=== PATIENT | female | born 1995 | race Caucasian/White ===

== ENCOUNTER 2020-04-14 19:09 | Emergency (ER) | payer BC, SELFPAY ==
--- NOTE | 2020-04-14 | DI.RAD.S_ITS ---
PROCEDURE: XR HAND RT MIN 3V INDICATIONS: RIGHT HAND PAIN TECHNIQUE: 3 views of the hand(s) acquired. COMPARISON: None. FINDINGS: Bones: No fractures or dislocations. Carpal bones are normally aligned. No suspicious bony lesions. Soft tissues: No suspicious soft tissue calcifications. IMPRESSION: No acute fracture. No osseous lesion. If symptoms and/or clinical suspicion for pathology persist, further assessment with repeat, or advanced imaging (e.g., CT, MRI, or bone scan) may be helpful for further assessment. Dictated by: Gina Arreola M.D. on 04/14/2020 at 19:35 Approved by: Gina Arreola M.D. on 04/14/2020 at 19:35
[2020-04-14 19:12] VITALS: TEMP 36.5; BMI 25.0
--- NOTE | 2020-04-14 19:14 | DI.RAD.S_ITS ---
PROCEDURE: XR WRIST RT MIN 3V INDICATIONS: wrist injury TECHNIQUE: 3 views of the wrist were acquired. COMPARISON: None. FINDINGS: Bones: No fractures or dislocations. No suspicious bony lesions. Scaphoid view: Not requested Soft tissues: No suspicious soft tissue calcifications. IMPRESSION: No acute fracture. No osseous lesion. If symptoms and/or clinical suspicion for pathology persist, further assessment with repeat, or advanced imaging (e.g., CT, MRI, or bone scan) may be helpful for further assessment. Dictated by: Gina Arreola M.D. on 04/14/2020 at 19:31 Approved by: Gina Arreola M.D. on 04/14/2020 at 19:31
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
[2020-04-14 22:58] VITALS: BP 114/62; PULSE 77; RESP 14; O2SAT 97
== END 2020-04-14 23:06 | disposition home or self-care (01) ==
PROVIDERS: Emergency Provider Emergency Medicine
DX: S63.91XA Sprain of unspecified part of right wrist and hand, initial encounter (principal); S66.911A Strain of unspecified muscle, fascia and tendon at wrist and hand level, right hand, initial encounter; Y93.41 Activity, dancing
CPT/HCPCS: 29125; 73110; 73130; 99283; 99284

== ENCOUNTER 2020-06-13 18:16 | Emergency (ER) | payer BC, SELFPAY ==
[2020-06-13 18:32] VITALS: BP 122/77; PULSE 70; RESP 22; TEMP 36.7; O2SAT 99
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
[2020-06-13] MEDS: IBUPROFEN 400 MG TABLET PO (19:01)
[2020-06-13] MEDS: BACITRACIN OINT 0.9 GM PCKT 1 APPLIC TOP (19:01)
[2020-06-13] MEDS: LIDO 1%/SOD BICARB 8.4% (10ML) 10 ML SYRINGE INJ (19:01)
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
[2020-06-13 19:56] VITALS: BP 116/76; PULSE 62; RESP 15; O2SAT 99
== END 2020-06-13 19:57 | disposition home or self-care (01) ==
PROVIDERS: Emergency Provider Nurse Practitioner Family
DX: S81.812A Laceration without foreign body, left lower leg, initial encounter (principal); W26.8XXA Contact with other sharp object(s), not elsewhere classified, initial encounter
CPT/HCPCS: 12002; 73590; 99283; 99284

== ENCOUNTER → 2021-02-27 18:39 | Outpatient (CLI) | payer OTHER, MEDICAID, SELFPAY ==
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
== END ==
PROVIDERS: PCP Nurse Practitioner Family; Referring Provider Orthopaedic Surgery Foot and Ankle Surgery; Visit Provider Orthopaedic Surgery Foot and Ankle Surgery
DX: M25.571 Pain in right ankle and joints of right foot (principal)
CPT/HCPCS: 73718

== ENCOUNTER 2021-03-20 23:02 | Emergency (ER) | payer OTHER, MEDICAID, SELFPAY ==
--- NOTE | 2021-03-20 23:11 | ED_ITS ---
HPI - Extremity Problem General Chief complaint: Extremity Problem,Nontraumatic Stated complaint: severe nerve pain Time Seen by Provider: 03/20/21 23:03 Source: patient and family Mode of arrival: Wheelchair Limitations: no limitations History of Present Illness HPI Narrative: 25-year-old female nonsmoker with recent history of overuse injury from running presents with a friend in the chief complaint of severe bu rning, sharp and stabbing pain from her right foot upper leg and now into her back. She denies any new injuries or falls. She denies any numbness, tingling or weakness. She denies any footdrop. She denies any trouble controlling bowel or bladder. She denies fever or chills and does not have a history of IV drug abuse. She denies any use of blood thinners. She had an EMG at the orthopedic office on and her symptoms have been terrible ever since. She had been on gabapentin 300 mg 3 times a day but becomes too sleepy during the day and has decreased to only 100 mg in the morning and 300 at night. MD Complaint: extremity pain Onset (ago): day(s) Pain Consistency: constant Location: right Severity scale (1-10): 9 Quality: burning, stabbing and sharp Radiation: proximal Relieving factors: rest Exacerbating factors: range of motion, weight bearing and walking Associated symptoms: denies other symptoms Related Data Previous Rx's Medication Instructions Recorded gabapentin 200 mg PO TID #30 cap 03/21/21 hydrocodone-acetaminophen 1 tab PO Q4-6H PRN #10 tab 03/21/21 ketorolac 10 mg PO Q6H PRN #14 tab 03/21/21 prednisone See Rx Instructions .ROUTE 03/21/21 .COMPLEX #30 tab Allergies Allergy/AdvReac Type Severity Reaction Status Date / Time No Known Drug Allergies Allergy Verified 04/14/20 19:12 Review of Systems Constitutional Constitutional: Denies chills, Denies fatigue, Denies fever(s), Denies frequent falls, Denies lethargy and Denies weakness Eyes Eyes: Denies change in vision, Denies eye discharge, Denies irritation and Denies loss of vision ENT Ears, Nose, Mouth, and Throat: Denies change in voice, Denies dizziness, Denies neck pain, Denies sore throat and Denies throat swelling Cardiovascular Cardiovascular: Denies chest pain, Denies irregular heart rhythm, Denies lightheadedness, Denies palpitations, Denies dyspnea, Denies dyspnea on exertion and Denies orthopnea Respiratory Respiratory: Denies cough, Denies dyspnea, Denies dyspnea on exertion and Denies wheezing Gastrointestinal Gastrointestinal: Denies abdominal pain, Denies change in bowel habits, Denies diarrhea, Denies nausea and Denies vomiting Musculoskeletal Musculoskeletal: Denies neck pain and Denies numbness Integumentary/Breasts Skin/Breast: Denies pruritus, Denies erythema, Denies rash and Denies wounds Neurologic Neurologic: Denies behavioral changes, Denies confusion, Denies dizziness, Denies frequent falls, Denies loss of vision, Denies numbness and Denies weakness Psychiatric Psychiatric: Denies anxiety, Denies behavioral changes, Denies confusion, Denies depression, Denies homicidal ideation and Denies suicidal ideation Endocrine Endocrine: Denies fatigue, Denies flushing and Denies palpitations Hematologic/Lymphatic Hematologic/Lymphatic: Denies easy bruising Allergic/Immunologic Allergic/Immunologic: Denies urticaria, Denies throat swelling and Denies wheezing Patient History Surgical History (Updated 06/13/20 @ 21:46 by BLANCA Zepeda) History of ankle surgery Social History (Updated 06/13/20 @ 21:46 by BLANCA Zepeda) Smoking Status: Never smoker substance use type: does not use Smoking Status: Never smoker alcohol intake frequency: holidays/special occasions only Substance Use Type: does not use Exam Narrative Exam Narrative: GEN: AOx3 and in obvious pain, tearful, rubbing her lower leg EYES: Pupils are equal, round, and reactive to light and accommodation. Extraoccular muscles are intact bilaterally. There is no subconjunctival hemorrhage or exudate. CHEST: Lungs are clear to auscultation bilaterally and free of wheezes, rales, or rhonchi. Heart rate is regular rhythm, there are no murmurs, clicks, rubs, or gallops. There is no chest wall tenderness. ABD: Abdomen is soft and nontender. There is no guarding or rebound. Bowel sounds are normal in all 4 quadrants. There is no mass or organomegaly. BACK: Back nontender and free of any obvious external abnormalities. Patient exam notes decreased range of motion and muscle spasm, but no CVA tenderness, or vertebral point tenderness. There are no symptoms of cauda equina such as saddle anesthesia, and decreased reflexes, decreased sensation or strength. EXT: Initially patient has significant pain with even minimal touch to her lower extremity from the knee down. The boot is removed and patient's foot is nontender, has good color cap refill less than 2 seconds and sensation intact. Compartments are soft. No erythema or discoloration. Patellar reflexes intact. SKIN: Warm, pink, and dry. No erythema or rash Initial Vital Signs Initial Vital Signs: Vital Signs Temperature 98.7 F 03/20/21 23:15 Pulse Rate 98 H 03/20/21 23:15 Respiratory Rate 20 03/20/21 23:15 Blood Pressure 139/86 03/20/21 23:15 Pulse Oximetry 99 03/20/21 23:15 Course Orders Ordered: Discontinued Medications Hydrocodone Bitart/Acetaminophen (Hydrocodone/Acet 5/325 Prepack) 1 bottle MISC SEEINSTR ONE Stop: 03/20/21 23:23 Last Admin: 03/20/21 23:33 Dose: 1 bottle Documented by: ALMA Ketorolac Tromethamine (Ketorolac 10 Mg Tablet) 10 mg PO NOW ONE Stop: 03/20/21 23:23 Last Admin: 03/20/21 23:34 Dose: 10 mg Documented by: ALMA Prednisone (Prednisone 20 Mg Tablet) 40 mg PO NOW ONE Stop: 03/20/21 23:17 Last Admin: 03/20/21 23:35 Dose: 40 mg Documented by: ALMA Consultations Consultation #1: Discussed with on-call orthopedics was able to review Dr. Vargas is no. Recommendations are to send home on a prednisone taper, encourage a higher dose of gabapentin and follow up in the morning Vital Signs Vital signs: Vital Signs - 8 hr 03/20/21 23:15 Temperature 98.7 F Pulse Rate 98 H Respiratory Rate 20 Blood Pressure 139/86 Pulse Oximetry 99 MDM - Extremity (Nontraumatic) MDM Narrative Medical decision making narrative: Multiple etiologies for patient's symptoms considered including: [Compartment syndrome versus lumbar radiculopathy versus peroneal nerve compression versus other] Patient's symptoms improved over duration of stay with above-stated therapies. Findings and discharge diagnosis discussed with patient/family followed by verbalization of understanding Return precautions discussed with patient/family whom verbalize understanding. Discharge Plan Departure Patient Disposition: Home Clinical Impression: Acute pain of right lower extremity Instructions: DI for Leg Pain Activity Restrictions/Additional Instructions: *You have been diagnosed with [severe right leg pain, presumably from nerve compression.] *What to do: *Take medications as directed * I have discussed your case with the on-call orthopedist rainer and he wants you to call Dr. Hester's office in the morning *Return to ER if you should have any new, worsening or concerning symptoms, such as [weakness, fever greater than 101 F, shaking chills, loss of control of bowel or bladder or other bothersome symptoms] Prescriptions: New prednisone 10 mg tablet See Rx Instructions .ROUTE .COMPLEX Qty: 30 RF: 0 ketorolac 10 mg tablet 10 mg PO Q6H PRN (Reason: pain) Qty: 14 RF: 0 hydrocodone-acetaminophen 5-325 mg tablet 1 tab PO Q4-6H PRN (Reason: pain) Qty: 10 RF: 0 gabapentin 100 mg capsule 200 mg PO TID Qty: 30 RF: 0 Referrals: Genesis Bryant ARNP [Primary Care Provider] - Stand Alone Forms: Work Release Note
[2021-03-20 23:15] VITALS: BP 139/86; PULSE 98; RESP 20; TEMP 37.1; O2SAT 99; BMI 23.3
[2021-03-20] MEDS: HYDROCODONE/ACET 5/325 PREPACK 1 BOTTLE MISC (23:33)
[2021-03-20] MEDS: KETOROLAC 10 MG TABLET PO (23:34)
[2021-03-20] MEDS: predniSONE 20 MG TABLET 40 MG PO (23:35)
[2021-03-21 00:46] VITALS: BP 118/70; PULSE 72; RESP 16; O2SAT 100
== END 2021-03-21 00:49 | disposition home or self-care (01) ==
PROVIDERS: Emergency Provider Emergency Medicine; PCP Nurse Practitioner Family
DX: M79.604 Pain in right leg (principal)
CPT/HCPCS: 99283

== ENCOUNTER → 2021-05-03 08:20 | Outpatient (CLI) | payer OTHER, MEDICAID, SELFPAY ==
[2021-05-03 10:55] LABS: COVID19 -Nasal RAPID Negative (Negative)
== END ==
PROVIDERS: PCP Nurse Practitioner Family; Visit Provider Nurse Practitioner Family
DX: Z20.822 Contact with and (suspected) exposure to COVID-19 (principal)
CPT/HCPCS: 87635

== ENCOUNTER 2021-05-05 06:24 | Day surgery (SDC) | payer OTHER, MEDICAID, SELFPAY ==
[2021-05-02 08:22] VITALS: BMI 21.6
[2021-05-05] VITALS (9 sets, daily range): BP systolic 94–118; BP diastolic 58–71; PULSE 70–94; RESP 10–18; TEMP 36.6–37; O2SAT 96–100; BMI 21.6
[2021-05-05] MEDS: LACTATED RINGERS 1,000 ML 42 ML IV (07:24)
--- NOTE | 2021-05-05 07:28 | PM.PREOP ---
Pre-operative Note COVID-19 COVID-19 status: Negative Result date/Date tested (Pos, Neg/Pending): 05/03/21 Interval Note History & Physical reviewed/Exam performed by Physician: Yes Changes to H&P: No
--- NOTE | 2021-05-05 07:33 | SUR.OPER ---
Lateral on padded OR bed with cordero bag, head on pillow, gel axillary roll in place, bottom leg bent with gel pad under knee to foot, upper leg straight and supported with pillows. Upper arm supported by pillows and secured over bottom arm to padded arm board. Safety belt at hip, tape over blanket lower legs.
[2021-05-05] MEDS: CEFAZOLIN 1 GM VIAL 2 GM IV (08:05)
[2021-05-05] MEDS: BUPIVACAINE 0.25% (PF) VIAL 30 ML INJ (08:19)
[2021-05-05] MEDS: EPINEPHrine 1 MG/ML IV (08:20)
[2021-05-05] MEDS: ACETAMINOPHEN IV 1,000 MG/100 ML VIAL 400 MG IV (08:42)
[2021-05-05] MEDS: HYDROMORPHONE 2 MG INJ IV (10:47)
[2021-05-05] MEDS: OXYCODONE IR 5 MG TABLET PO (10:49)
--- NOTE | 2021-05-05 11:20 | P.OP_ITS ---
Operative Date/Time/Diagnoses Date of procedure: 05/05/21 Time of procedure: 08:20 Pre-op diagnosis: 1. 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 Neuropathy right sural nerve Post-op diagnosis: same Procedure & Clinicians Procedure: 1. Fasciotomy, decompressive anterior compartment right lower leg CPT code 74022 2. Fasciotomy decompressive lateral compartment right lower leg CPT code 09815 3. Decompression superficial peroneal nerve right CPT code 38150 4. Decompression sore all nerve right CPT code 72578-14 Same procedure as scheduled: Yes Indications: Patient is a 26-year-old female with a long history of vague but persistent right lower extremity pain. This 1st happened when she was training for a half marathon and then she ended up spending 8 months and out of a walking boot due to pain and numbness over the last 7 years she has been in and out of a boot and has been unable to continue running regularly due to persistent pain S. This usually starts after about 10 or 15 minutes of running she was initially managed out of state with therapy and gabapentin for nerve injury. She is currently unable to run due to recurrences of pain also having more pain at rest numbness and hypersensitivity. She had EMG that noted some superficial peroneal sensory amplitude slower than the contralateral no evidence of lumbar sacral radiculopathy or polyneuropathy or common peroneal neuropathy she had an MRI of the right lower extremity that showed some signal change within the peroneus longus muscle proximally but no masses. She has exhausted conservative treatment remain symptomatic with the predictable worsening symptom minutes on the onset of exercise highly suspect for exertional compartment syndrome as well as a clinical toenails along both the superficial peroneal and the sural nerves. She has not gotten adequate relief at of nerve medication and continues to be unable to participate in activities. We have discussed lateral and anterior compartment releases and decompression of the superficial peroneal and sural nerves. No guarantees have been made. The risks and benefits of the procedure have been discussed with the patient even opportunity to ask questions. The risks of surgery include but are not limited to infection, malunion, nonunion, persistence of pain, damage to nerves and blood vessels, posttraumatic arthritis, DVT, PE, cardiopulmonary complications and . The patient expressed a thorough understanding of the risks and benefits of surgery and has elected to proceed. Consent was signed in the office. Surgeon: Unique Reyes Click Yes if Unassisted: Yes Anesthesia Type: General and Local (30 cc 0.25% Marcaine with epinephrine) Operative Notes Findings: Findings: superficial peroneal nerve was explored and there was compression significantly at the level of the transverse crural fascia with extremely thickened fascia and denting of the nerve. No transection or neuroma was noted. The nerve was completely decompressed along the course of the intermuscular septum. Additionally longitudinal and transverse fasciotomies of the anterior and lateral compartments were completed. Through a separate incision the sural nerve was explored no obvious neuroma however the distal sural nerve was tethered near the level of the lateral malleolus and compressed by a anterior crossing branch of the lesser saphenous vein. The nerve was decompressed distal and proximal to this. Closure Type: primary Specimen(s): none sent Estimated Blood Loss (mL): 5 Blood products transfused: none Tourniquet time (min): 55 Procedure in detail: In the preoperative holding area the appropriate limb and right leg surgery site was marked informed consent confirmed. Final questions were answered. Locati ons of the maximal Tinel's were marked this was approximately 10 cm proximal to the lateral malleolus a between the fibula and tibial crest in the distribution of the superficial peroneal nerve course and laterally just this proximal and posterior to the lateral malleolus along the sural nerve. Patient was brought back to the operating room by the anesthesia team positioned supine on the operative table. General anesthetic was administered and then the patient was positioned in the lateral decubitus position with the operative extremity up. All bony prominences were padded. Well-padded thigh tourniquet was placed. An axillary roll was placed. An SCD was on the contralateral lower extremity. The surgical leg was then prepped and draped in the standard sterile fashion. Formal time-out procedure was completed from the patient's side and site of surgery administration of appropriate preoperative antibiotics. All were in agreement. The Esmarch bandage was utilized for exsanguination the tourniquet elevated on the thigh to 250 mmHg and stayed there for 55 minutes. Superficial peroneal nerve decompression: The anterior lateral incision was marked out on the skin over the anterior and lateral compartments. The incision was marked at intervals of 10 15 and 20 cm proximal to the lateral malleolus at levels of 3.5 cm 4.0 cm and 4.5 cm lateral to the tibial crest corresponding to these levels. A separate more proximal incision was marked out in line with the compartment release incision more distally. The skin was incised sharply. Dissecting scissors were then used to expose the fascia. Extreme care and loupe magnification was used distally to identify the superficial peroneal nerve branch as it x-rayed the of fashion became subcutaneous this was approximately 10-12 cm proximal to the lateral malleolus. There was an abundance of scar tissue in this area. The nerve was dissected from proximal to distal. The robust transverse crural fascia was divided there was some tenting noted in the superficial peroneal nerve at this level but no transection or neuroma. There was a completely freed distally and then released completely proximally through the intramuscular septum. The superficial peroneal nerve was traced to where it dives deep into the muscle proximally. Lateral and anterior compartment fasciotomies: Next care was used to carefully divide longitudinally the anterior and lateral compartments with fasciotomies on either side of the septum. 1st in the longitudinal direction and then transverse fasciotomies. Additional small sections of the fascia were excised providing an excellent release. Muscle was pink and viable and contractile. The proximal counter incision was then made just anterior and distal to the fibular head this was taken down to the fascia fascia was carefully opened and then released of completely along the anterior and lateral compartments in continuity with the distal incision under the skin bridge. Retractors were used for complete visualization and nerve protection during part of the procedure. Sural nerve decompression: A separate incision was made along the course of the sural nerve starting at the level of the lateral malleolus posteriorly and for approximately 10 cm proximal and the posterior. This was incised through the skin again dissecting scissors were used to expose the soft tissues surrounding the sural nerve this was found proximally with the lesser fat saphenous vein and then traced distally towards the ankle. Sural nerve was found just anterior lateral to the Achilles and traced along the lesser saphenous vein. The nerve was released proximally and distally. Distal at the level just above the lateral malleolus was noted to be very prominent branch of the lesser saphenous vein which was directly crossing the sural nerve at this location. No obvious neuroma was demonstrated of but this is a suspect a site of compression as the lesser saphenous quite robust/varicose. The small crossing branch was ligated decompressing the sural nerve. At this point the compartments and nerves were completely decompressed the tourniquet was released and hemostasis was achieved. Once this was completed the wounds were thoroughly irrigated and then closed with 4-0 Monocryl suture and Dermabond. 30 cc of 0.25% Marcaine with epinephrine was used for local anesthetic. Sterile padded dressing and posterior splint was placed. Patient was woken from anesthesia and taken to the recovery room in good condition. No immediate complications were noted. Complications: none Post-operative Condition: stable Disposition: PACU Plan for aftercare: nonweightbearing or toe-touch down for balance for the 1st 2 weeks to help with healing advocated elevation for swelling. Will follow up in 2 weeks for weight-bearing and physical therapy. Will take 81 mg of aspirin b.i.d. while toe-touch weight-bearing.
--- NOTE | 2021-05-05 11:35 | SUR.PHASEII ---
Report to ALEX Owens. R leg elevated, ice behind knee. Mom called and condition updated. Can I just sleep? Call neri in reach. Pt allowed to rest.
--- NOTE | 2021-05-05 12:39 | SUR.PHASEII ---
Oxycodone was previously given per anesthesia, pt requested to take 1/2 tab additional med.
[2021-05-05] MEDS: OXYCODONE IR 5 MG TABLET 2.5 MG PO (12:41)
== END 2021-05-05 12:58 | disposition home or self-care (01) ==
PROVIDERS: PCP Nurse Practitioner Family; Referring Provider Orthopaedic Surgery Foot and Ankle Surgery; Visit Provider Orthopaedic Surgery Foot and Ankle Surgery
PROC: (CPT 27685; principal; 2021-05-05 07:45)
DX: M79.A21 Nontraumatic compartment syndrome of right lower extremity (principal); G57.31 Lesion of lateral popliteal nerve, right lower limb; M76.31 Iliotibial band syndrome, right leg; G57.82 Other specified mononeuropathies of left lower limb; J45.909 Unspecified asthma, uncomplicated
CPT/HCPCS: 27600; 64708 ×2; 81025; J0131; J0171; J0690; J1100; J1170; J1885; J2250; J2405; J2704; J3010

== ENCOUNTER → 2021-07-13 08:42 | Outpatient (CLI) | payer OTHER, MEDICAID, SELFPAY ==
[2021-07-13 09:46] LABS: Add Manual Diff / Slide Review NO; Basophils Absolute Auto 0 /uL (0-100); Basophils Percent Auto 0.6 % (0-2); Eosinophils Absolute Auto 100 /uL (0-450); Eosinophils Percent Auto 1.2 % (2-4); Hematocrit 38.5 % (36-46); Hemoglobin 12.7 g/dL (12.0-16.0); Lymphocytes Absolute Auto 1400 /uL (1100-4500); Lymphocytes Percent Auto 29.4 % (25-40); Mean Corpuscular Hemoglobin 31.3 PG (26-34); Mean Corpuscular Volume 94.8 fL (80-100); Monocytes Absolute Auto 700 /uL (0-900); Monocytes Percent Auto 14.6 % (3-14); Neutrophils Absolute Auto 2700 /uL (1500-7000); Neutrophils Percent Auto 54.2 % (50-75); Platelet Count 215 X10^3/uL (150-400); Red Blood Cell Count 4.06 X10^6/uL (4.0-5.2); White Blood Cell Count 4.9 X10^3/uL (4.5-11.0)
[2021-07-13 09:58] LABS: UR Morphine/Opiate cutoff 300 Negative (Negative); Ur Creatinine Normal (Normal); Ur Specific Gravity Normal (Normal); Urine Amphetamines Negative (Negative); Urine Barbiturates Negative (Negative); Urine Benzodiazepines Negative (Negative); Urine Cocaine Negative (Negative); Urine MDMA Negative (Negative); Urine Methadone Negative (Negative); Urine Methamphetamines Negative (Negative); Urine Oxycodone Negative (Negative); Urine Phencyclidine Negative (Negative); Urine Tetrahydrocannabinol Negative (Negative); Urine Tricyclic Antidepressant Negative (Negative); Urine pH Normal (Normal)
[2021-07-13 10:04] LABS: Alanine Aminotransferase 22 IU/L (<35); Albumin 4.5 g/dL (3.5-5.0); Albumin Globulin Ratio 1.6 (1.0-2.8); Alkaline Phosphatase 49 U/L (38-126); Aspartate Aminotransferase 38 IU/L (14-36); BUN Creatinine Ratio 13.5 (6-22); Bilirubin Total 0.9 mg/dL (0.2-1.3); Blood Urea Nitrogen 7 mg/dL (7-17); Calcium 9.4 mg/dL (8.4-10.2); Carbon Dioxide 26 mmol/L (22-32); Chloride 105 mmol/L (98-107); Estimated Glomerular Filt Rate > 60.0 mL/min (>60); Globulin 2.8 g/dL (1.7-4.1); Glucose 97 mg/dL (70-100); HEMOLYSIS < 15 (0-50); Potassium 4.1 mmol/L (3.4-5.1); Sodium 137 mmol/L (137-145); Total Protein 7.3 g/dL (6.3-8.2)
== END ==
PROVIDERS: PCP Registered Nurse; Referring Provider Registered Nurse; Visit Provider Registered Nurse
DX: F41.8 Other specified anxiety disorders (principal); F90.9 Attention-deficit hyperactivity disorder, unspecified type
CPT/HCPCS: 36415; 80053; 80305; 85025

== ENCOUNTER → 2021-08-14 09:01 | Outpatient (CLI) | payer OTHER, MEDICAID, SELFPAY ==
[2021-08-14 10:45] LABS: TSH w/ Reflex to FT4 1.69 uIU/mL (0.47-4.68)
[2021-08-15 14:19] LABS: Varicella IgG Antibody 1823 index (Immune >165)
== END ==
PROVIDERS: PCP Registered Nurse; Referring Provider Registered Nurse; Visit Provider Registered Nurse
DX: B01.9 Varicella without complication (principal); Z83.49 Family history of other endocrine, nutritional and metabolic diseases
CPT/HCPCS: 36415; 84443; 86580; 86787

== ENCOUNTER → 2021-09-11 13:44 | Outpatient (CLI) | payer OTHER, MEDICAID, SELFPAY ==
[2021-09-12 04:31] LABS: Hepatitis B Surf AB Quant <3.1 mIU/mL (Immunity>9.9)
== END ==
PROVIDERS: PCP Registered Nurse; Referring Provider Registered Nurse; Visit Provider Registered Nurse
DX: Z01.84 Encounter for antibody response examination (principal)
CPT/HCPCS: 36415; 86580; 86706

== ENCOUNTER → 2021-12-20 15:31 | Outpatient (CLI) | payer OTHER, SELFPAY ==
[2021-12-20 16:58] LABS: Alanine Aminotransferase 18 IU/L (<35); Albumin 4.3 g/dL (3.5-5.0); Albumin Globulin Ratio 1.7 (1.0-2.8); Alkaline Phosphatase 51 U/L (38-126); Aspartate Aminotransferase 29 IU/L (14-36); BUN Creatinine Ratio 11.8 (6-22); Bilirubin Total 0.9 mg/dL (0.2-1.3); Blood Urea Nitrogen 6 mg/dL (7-17); Calcium 9.7 mg/dL (8.4-10.2); Carbon Dioxide 28 mmol/L (22-32); Chloride 105 mmol/L (98-107); Estimated Glomerular Filt Rate > 60.0 mL/min (>60); Globulin 2.6 g/dL (1.7-4.1); Glucose 95 mg/dL (70-100); HEMOLYSIS < 15 (0-50); Potassium 3.8 mmol/L (3.4-5.1); Sodium 137 mmol/L (137-145); Total Protein 6.9 g/dL (6.3-8.2)
== END ==
PROVIDERS: PCP Registered Nurse; Referring Provider Registered Nurse; Visit Provider Registered Nurse
DX: F41.8 Other specified anxiety disorders (principal); F90.9 Attention-deficit hyperactivity disorder, unspecified type
CPT/HCPCS: 36415; 80053

== ENCOUNTER → 2022-07-15 15:05 | Outpatient (CLI) | payer OTHER, SELFPAY | PROVIDERS: Visit Provider Nurse Practitioner Critical Care Medicine | DX: H57.89 Other specified disorders of eye and adnexa (principal) | CPT/HCPCS: 87070; 87077; 87205 ==

== ENCOUNTER → 2023-01-24 08:00 | Outpatient (CLI) | payer BC, SELFPAY ==
[2023-01-24 09:11] LABS: Influenza A - CEPHEID Flu A NEGATIVE (NEGATIVE); Influenza B - CEPHEID Flu B NEGATIVE (NEGATIVE); Respiratory Syncytial Virus Negative (Negative)
[2023-01-24 09:13] LABS: COVID-19 CEPHEID 4-PLEX PCR Negative (Negative)
== END ==
PROVIDERS: Visit Provider Registered Nurse
DX: J06.9 Acute upper respiratory infection, unspecified (principal)
CPT/HCPCS: 0241U

== ENCOUNTER → 2023-09-11 18:38 | Outpatient (CLI) | payer OTHER, MEDICAID, SELFPAY ==
--- NOTE | 2023-09-11 18:41 | DI.RAD.S_ITS ---
PROCEDURE: XR KNEE LT 3V INDICATIONS: Left knee strain TECHNIQUE: 3 views of the knee were acquired. COMPARISON: None. FINDINGS: Bones: No fractures or dislocations. No suspicious bony lesions. Soft tissues: No joint effusion. No suspicious soft tissue calcifications. IMPRESSION: Left knee without acute radiographic abnormalities. No significant degenerative changes seen. If there are persistent symptoms or clinical suspicion for pathology, then repeat radiographs or advanced imaging (CT or MRI) may be considered for further evaluation. Dictated by: Jayden Keyes M.D. on 09/12/2023 at 10:14 Approved by: Jayden Keyes M.D. on 09/12/2023 at 10:15
== END ==
PROVIDERS: Referring Provider Nurse Practitioner Family; Visit Provider Nurse Practitioner Family
DX: M25.562 Pain in left knee (principal)
CPT/HCPCS: 73562

== ENCOUNTER → 2023-10-27 13:55 | Outpatient (CLI) | payer OTHER, MEDICAID, SELFPAY ==
--- NOTE | 2023-10-27 13:56 | DI.RAD.S_ITS ---
PROCEDURE: XR CHEST 2V INDICATIONS: Cough. TECHNIQUE: 2 views of the chest were acquired. COMPARISON: None. FINDINGS: Surgical changes and devices: None. Lungs and pleura: Lungs are clear. No pleural effusions or pneumothorax. Mediastinum: Mediastinal contours are normal. Heart size is normal. Bones and chest wall: No suspicious bony abnormalities. Soft tissues appear unremarkable. IMPRESSION: No acute cardiopulmonary abnormality is seen. Dictated by: Domingo Whitehead M.D. on 10/27/2023 at 13:13 Approved by: Domingo Whitehead M.D. on 10/27/2023 at 13:15
== END ==
PROVIDERS: Family Provider Orthopaedic Surgery Foot and Ankle Surgery; PCP Orthopaedic Surgery Foot and Ankle Surgery; Referring Provider Registered Nurse; Visit Provider Registered Nurse
DX: R05.9 Cough, unspecified (principal)
CPT/HCPCS: 71046

== ENCOUNTER → 2023-11-20 08:37 | Outpatient (CLI) | payer OTHER, MEDICAID, SELFPAY ==
--- NOTE | 2023-11-20 08:39 | DI.US.S_ITS ---
PROCEDURE: US PELVIC COMPLETE INDICATIONS: BLEEDING POST SPONTANEOUS 10/18/23. TECHNIQUE: Real-time scanning was performed of the pelvic organs, with image documentation. Additional endovaginal scanning was necessary due to incomplete visualization of the adnexal and endometrial structures by transabdominal scanning. COMPARISON: None. FINDINGS: Uterus: Uterus is retroverted and normal in size at 6.7 x 5.7 x 3.9 cm. The myometrium is homogeneous. The endometrium measures 2.3 mm combined thickness. Hypervascular endometrium is present. No focal uterine mass. Cervical canal is thickened and hypervascular. Ovaries: The right ovary measures 5.2 x 3.0 x 2.5 cm, with a calculated ovarian volume of 26.5 cc. The left ovary measures 3.9 x 2.0 x 1.9 cm, with a calculated ovarian volume of 7.4 cc. The ovaries have a normal sonographic appearance. Less than 12 follicles can be seen in each ovary. No adnexal masses are seen. Other: Small to moderate amount of complex fluid adjacent to the uterus is present. IMPRESSION: 1. Hypervascular endometrium, possibly indicating retained products of conception. 2. Small to moderate amount of complex free fluid in the pelvis. We strive to produce accurate, complete, and clear reports of imaging services. To assist us in improving patient care, this report was composed using standard report templates and voice recognition software. Therefore, it may contain abnormal punctuation, insertions and/or omissions. Occasional wrong-word or sound-alike substitutions may occur. Though we review the report and make efforts to correct it, we do recommend that the report be read carefully in proper context to recognize any text inaccuracies. Dictated by: Gina Arreola M.D. on 11/20/2023 at 9:33 Approved by: Gina Arreola M.D. on 11/20/2023 at 9:35
[2023-11-20 10:41] LABS: Add Manual Diff / Slide Review NO; Basophils Absolute Auto 0 /uL (0-100); Basophils Percent Auto 0.4 % (0-2); Eosinophils Absolute Auto 200 /uL (0-450); Eosinophils Percent Auto 3.1 % (2-4); Hematocrit 36.4 % (36-46); Hemoglobin 12.2 g/dL (12.0-16.0); Lymphocytes Absolute Auto 1300 /uL (1100-4500); Lymphocytes Percent Auto 19.4 % (25-40); Mean Corpuscular HGB Conc 33.7 % (30-36); Mean Corpuscular Hemoglobin 30.7 PG (26-34); Mean Corpuscular Volume 91.1 fL (80-100); Monocytes Absolute Auto 700 /uL (0-900); Monocytes Percent Auto 10.9 % (3-14); Neutrophils Absolute Auto 4300 /uL (1500-7000); Neutrophils Percent Auto 66.2 % (50-75); Platelet Count 232 X10^3/uL (150-400); Red Blood Cell Count 3.99 X10^6/uL (4.0-5.2); Red Cell Distribution Width 13.3 % (11.6-14.8); White Blood Cell Count 6.6 X10^3/uL (4.5-11.0)
[2023-11-20 11:27] LABS: HCG Quantitative /Beta subunit < 2.4 mIU/mL
== END ==
PROVIDERS: Family Provider Orthopaedic Surgery Foot and Ankle Surgery; PCP Family Medicine; Referring Provider Obstetrics & Gynecology; Visit Provider Obstetrics & Gynecology
DX: O03.9 Complete or unspecified spontaneous abortion without complication (principal); N92.0 Excessive and frequent menstruation with regular cycle; N92.1 Excessive and frequent menstruation with irregular cycle; T38.5X5A Adverse effect of other estrogens and progestogens, initial encounter; N92.3 Ovulation bleeding
CPT/HCPCS: 36415; 76830; 76856; 84702; 85025

== ENCOUNTER 2024-01-07 13:45 | Outpatient (RCR) | payer OTHER, MEDICAID, SELFPAY ==
--- NOTE | 2023-10-29 19:28 | PT.OIE ---
Current Diagnoses Pain in left knee (10/29/23) Radiculopathy, lumbosacral region (10/29/23) Muscle weakness (generalized) (10/29/23) Segmental and somatic dysfunction of sacral region (10/29/23) Past Medical History (Last Reviewed 10/27/23 @ 13:53 by BLANCA Mckeon) Hormonal disorder Immunity status testing Nasolacrimal duct obstruction Varicella Past Surgical History (Last Reviewed 10/27/23 @ 13:53 by BLANCA Mckeon) History of ankle surgery Visit Care Team Role Provider Type Unique Reyes MD Attending Provider Physician Family Provider Primary Care Provider Referring Provider Specialty: Orthopedics Orthopedic Surgery Address: [address] [place] [address], [place], [address] Email: Physical Therapy Initial Evaluation PT-OP-A Visit Information Start: 10/25/23 19:23 Freq: Status: Active Protocol: Document 10/29/23 14:36 LRN (Rec: 10/29/23 19:20 LRN [id number]) Out-Patient Physical Therapy Visit Information Visit Information Visit Type Initial Evaluation Visit Start Time 14:36 Visit Stop Time 15:34 Total Visit Minutes 58 Visit Number 12/11 Evaluation Information Evaluation Date 10/29/23 Precautions Precautions Ankle reconstruction surgery at age 11. PT-OP-B Current Condition Start: 10/25/23 19:23 Freq: Status: Active Protocol: Document 10/29/23 14:36 LRN (Rec: 10/29/23 19:20 LRN [id number]) Current Condition History of Current Condition Onset Date 08/17/23 Current Complaints L posterior knee pain onset w/ standing & activity. Pain rated 1/10. History of Current Condition Pt reports being seen 2 days ago for asthma exacerbation and is on antibiotics. Ran a half marathon and at mile 5 had hamstrings tightening, did stretches then finished the run, then had pain behind the L knee with inflammation. She reports waking the next day with throbbing pain, like being on fire. Took 2 weeks off running, did research online, and did self help. She returned to running and that night had terrible pain again. States during her time off she did knee ex's and a lot of standing, squatting. She has been able to take time off for the last 5 wks to heal from asthma and has been taking it easy. She felt her symptoms were similar to the pain she has in the R LE that has been diagnosed with compartment syndrome, but states Dr. Reyes found no compartment swelling in the knee (mid Sep) and was therefore referred to PT. Resting has helped to reduce her pain. She reports using Lidocaine topical patch behind the L knee ~3 wks, but hasn't used it in the past week because she has been trying to recover from an asthma flare up. She just started back to work today since being off sick. 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 Prior Treatments and Tests Gabapentin for R LE compartment syndrome in the R LE (since 2020). X-rays of L knee: Normal. Jt pressure: normal. No arthritis. Developmental History Developmental History Has hx of chronic compartment syndrome in lateral posterior lower leg and was experiencing a lot of similar symptoms in the knee. Treatment Goals Patient/Caregiver Goals Pt goals: Get back to working 8 hrs/2 shifts per week without having to use the knee brace or Lidocaine patch w/o pain. HEP. Prior Functional Status Baseline Function- ADL's Independent Baseline Function- Mobility Independent Baseline Function- Recreation/Hobbies Running avg of 30 miles a week . (10-12 miles per long run on hills). 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 Functional Limitations- Mobility/Gait Stairs ambulation is normal. Tolerates full shift at work if wearing Lidocaine pain patch and brace. W/o Lidocaine patch and brace, would need to sit for job. Functional Limitations- Recreation/ No exercise. Hobbies Functional Limitations- Other Stairs with occasional twinge of pain Personal Factors Other Personal Factors That May Effect Currently being treated for Therapy/Recovery asthma and recently ear infection (10/27/23), ADHD, RLE Chronic compartment syndrome (since 2020), ankle reconstruction surgery at age 11, depression. PT-OP-C Subjective Start: 10/25/23 19:23 Freq: Status: Active Protocol: Document 10/29/23 14:36 LRN (Rec: 10/29/23 19:20 LRN [id number]) Patient Questionnaires Lower Extremity Functional Scale LEFS Score 51 LEFS Impairment 20 to 39% Impaired (Score 48- 62) OP-PT Pain Assessment Pain Assessment Grid Paper Pain Assessment Grid Completed Yes Location L knee Pain Location Details L posterior thigh, popliteal fossa, and upper lower leg. Description Aching,Burning Pain Aggravating Factors Activity Other Pain Alleviating Factors Gabapentin PT-OP-G Mobility & Gait Start: 10/25/23 19:23 Freq: Status: Active Protocol: Document 10/29/23 14:36 LRN (Rec: 10/29/23 19:20 LRN [id number]) Stair Climbing Evaluation Comments Stair Climbing Comments Pt reports normal gait on stairs w/o pain PT-OP-H Neuro Start: 10/25/23 19:23 Freq: Status: Active Protocol: Document 10/29/23 14:36 LRN (Rec: 10/29/23 19:20 LRN [id number]) Sensation Evaluation Gross Sensation Gross Sensation WNL PT-OP-J Posture/Palpation/Skin Start: 10/25/23 19:23 Freq: Status: Active Protocol: Document 10/29/23 14:36 LRN (Rec: 10/29/23 19:20 LRN [id number]) Posture Evaluation Position Standing L-Spine Posture Neutral Shoulder Posture (L) Elevated Pelvis Posture Neutral Weight Distribution Balanced Hip Posture (L) Externally Rotated Knee Posture (R) Genu Recurvatum Foot Arch (L) High Arch,(R) High Arch Palpation Assessment Location L knee Palpation Location L knee joint and adjacent regions Palpation Details No pain. Pt reported initially pain at L Biceps Femoris tendon at proximal fibular head. PT-OP-K Range of Motion Start: 10/25/23 19:23 Freq: Status: Active Protocol: Document 10/29/23 14:36 LRN (Rec: 10/29/23 19:20 LRN [id number]) Knee Goniometric Range of Motion Knee Right Knee ROM WFL Yes Patient Position Sit & Stand Comments R knee in standing demonstrates hyper extension present. Left Knee ROM WFL Yes Patient Position Sitting Ankle and Foot Goniometric Range of Motion Ankle and Foot Right Active Ankle/Foot ROM WFL Yes Left Active Ankle/Foot ROM WFL Yes PT-OP-L Special Tests Start: 10/25/23 19:23 Freq: Status: Active Protocol: Document 10/29/23 14:36 LRN (Rec: 10/29/23 19:20 LRN [id number]) Special Tests Lumbar Spine Special Tests Slump Test Results + left Knee Special Tests Posterior Sag Test Results Left negative Apley's Compression Test Results Left positive with ER of foot Comments Pain felt at posterior fibular head. Valgus- 25 Degrees Test Results Left negative Valgus- 0 Degrees Test Results Left negative Bounce Home Test Results Left negative Patellar Grind Test Test Results Left negative Omayra's Test Results Left negative Anterior Draw Test Results Left negative Forrest Test Test Results Left negative Neural Special Tests- Lower Body Sciatic Nerve Tension Test Results Left Positive PT-OP-M Strength Start: 10/25/23 19:23 Freq: Status: Active Protocol: Document 10/29/23 14:36 LRN (Rec: 10/29/23 19:20 LRN [id number]) Hip Strength Hip Manual Muscle Testing Right Comments Strength is 5/5 Left Flexion (L2) 4 Good Comments Strength is 5/5 except as indicated above Knee Strength Knee Manual Muscle Testing Right Flexion (S2) 5 Normal Extension (L3) 5 Normal Left Flexion (S2) 5 Normal Extension (L3) 5 Normal Ankle/Foot Strength Ankle and Foot Manual Muscle Testing Right Comments Normal strength 5/5. Left Comments Normal strength 5/5. PT-OP-Q Treatments Start: 10/25/23 19:23 Freq: Status: Active Protocol: Document 10/29/23 14:36 LRN (Rec: 10/29/23 19:20 LRN [id number]) Therapeutic Exercises Sitting Exercises Kick the Head off Sitting Exercise Name LE nerve glide: Kick the Head Off Side bilateral Reps/Minutes 10x Comments Pt holds L/S straight, mild limited in knee ext due to pain Self-Care/Home Management Treatment Education Patient Education Home Exercise Program Other Education Discussed results of evaluation, goals, and plan of care (POC). Pt agreeable to goals and POC. Activities Self-Care/Home Management Activities I/S pt in HEP: L LE nerve glide (Kick the head off) PT-OP-T Assessment and Plan Start: 10/25/23 19:23 Freq: Status: Active Protocol: Document 10/29/23 14:36 LRN (Rec: 10/29/23 19:20 LRN [id number]) Physical Therapy Assessment Rehab Potential Rehabilitation Potential Good Evaluation Complexity Number of Personal Factors/Comorbidities 3 or More Number of Body Systems Impaired 4 or More Clinical Presentation at Evaluation Evolving Impairments Impairments Activity Tolerance,Pain, Posture,ROM,Soft Tissue Mobility,Strength Other Impairments L midly innominate anteriorly rotated. + LLE sciatic neural tension. Goals Three Impairment L LE neural tension limiting LLE mobility (SLR) Short Term Goal (STG) Pt will demonstrate a negative L PSLR. STG Duration 4 wks-11/29/23 Fdc Goal (LTG) No pain with L LE sciatic neural gliding otherwise request further testing for possible lumbar involvement. LTG Duration 10 wks-01/07/24 Two Impairment Pelvic obliquity (L anteriorly rotated innominate), + LLE neural tension Impairment LTG: Stabilize Pelvis with pt able to tolerate reorganizing pantry, washing dishes, laundry before having to sit down to rest. Short Term Goal (STG) Pt will be educated in self correction of L innominate for rotational correction ( initially for a mild L innominate anterior rotation). STG Duration 3 wks-11/22/23 Production Support Analyst Goal (LTG) Pt will be able to tolerate working 8 hrs/2 shifts per week without having to use the knee brace or Lidocaine patch w/o pain. LTG Duration 10 wks-01/07/24 One Impairment Pt lacks appropriate self care HEP Short Term Goal (STG) Pt will be educated in log roll transfers, proper body mechanics for ADLs, proper sitting/standing posture. STG Duration 3 wks-11/22/23 Fdc Goal (LTG) Pt will be independent in an effective self care HEP for low back/hip mobility & strengthening ex's, and LE strengthening. LTG Duration 10 wks-01/07/24 Assessment Summary Assessment Pt is a 28 yo female who presents with symptoms of lumbar neural involvement, weakness of L hip flexion (L2) and a mildly anteriorly rotated L innominate. I was only able to reproduce her pain with LLE Slump Testing and Apley's Compression Test, indicating possible meniscus injury. She has full L knee ROM and strength and has no pain with palpation around the knee. She indicates initially she had pain posteriorly at the proximal fibular head, but today there was no pain. The pt will benefit from skilled physical therapy to improve her function and acheive the above stated goals. If the pt is not able to progress in 4-6 weeks it would be recommended further testing for possible menicus injury or lumbar disc injury. Physical Therapy Plan Frequency and Duration Frequency of Treatment 2x/Week Duration of treatment (weeks) 10 Plan of Care Start Date 10/29/23 Plan of Care End Date 01/07/24 Therapeutic Interventions Therapeutic Interventions Canalithic Repositioning,Home Exercise Program,Joint Mobilizations,Manual Therapy, Neuromuscular Re-education, Patient/Caregiver Education, Self-Care/Home Management,Soft Tissue Mobilization,Taping, Therapeutic Activities, Therapeutic Exercises Modalities Cold Pack/Ice Massage,Electric Stimulation,Hot Packs, Ultrasound Next Visit Focus/Plan Next Note Type Treatment Note Next Visit Plan Assess knee reflexes and gait; assess hip PROM & lumbar ROM/ Special Tests, Education: log roll transfers , body mechanics for ADLs, sitting/standing posture. Pain managgement and self correction of L innominate for rotational correction. Manual: JMT to correct mildly anteriorly rotated L innominate & tib/fib mobs, Sacral balancing, STM-low back . TFL. Ex: LE neural gliding, Core stabilization after innominate correction, hip/lumbar ROM ex 's as needed after assessment. Gait training for transition to running.
--- NOTE | 2023-11-25 08:23 | PT-OP ANOTE ---
Pt did not show for today's appt, upon chart review has cancelled 6 appts via text with no reasoning since eval on 10/29/23. SENIOR IT RECRUITER left voice message regarding wanting to assist progress in mobility and pain control with which was referred here for and reminded of policy of maintaining attendance 50% +. SENIOR IT RECRUITER asked to call back this week and speak with SENIOR IT RECRUITER and or leave a message if wish to continue with scheduled appts or if doing well and want to DC is ok to do so just need confirmation. Next appt 11/29 with SENIOR IT RECRUITER.
--- NOTE | 2023-12-02 09:27 | PT.OTN ---
Current Diagnoses Pain in left knee (12/02/23) Radiculopathy, lumbosacral region (12/02/23) Muscle weakness (generalized) (12/02/23) Segmental and somatic dysfunction of sacral region (12/02/23) Physical Therapy Treatment Note PT-OP-A Visit Information Start: 10/25/23 19:23 Freq: Status: Active Protocol: Document 12/02/23 08:19 LRN (Rec: 12/02/23 09:25 LRN [id number]) Out-Patient Physical Therapy Visit Information Visit Information Visit Type Treatment Note Visit Start Time 08:20 Visit Stop Time 09:05 Total Visit Minutes 45 Visit Number 01/11 Evaluation Information Evaluation Date 10/29/23 Precautions Precautions Ankle reconstruction surgery at age 11. Pt reported compartment syndrome surgery in R Lower leg 04/2021 (release and removal of scar tissue of anterior lower leg). PT-OP-B Current Condition Start: 10/25/23 19:23 Freq: Status: Active Protocol: Document 10/29/23 14:36 LRN (Rec: 10/29/23 19:20 LRN [id number]) Current Condition History of Current Condition Onset Date 08/17/23 Current Complaints L posterior knee pain onset w/ standing & activity. Pain rated 1/10. History of Current Condition Pt reports being seen 2 days ago for asthma exacerbation and is on antibiotics. Ran a half marathon and at mile 5 had hamstrings tightening, did stretches then finished the run, then had pain behind the L knee with inflammation. She reports waking the next day with throbbing pain, like being on fire. Took 2 weeks off running, did research online, and did self help. She returned to running and that night had terrible pain again. States during her time off she did knee ex's and a lot of standing, squatting. She has been able to take time off for the last 5 wks to heal from asthma and has been taking it easy. She felt her symptoms were similar to the pain she has in the R LE that has been diagnosed with compartment syndrome, but states Dr. Reyes found no compartment swelling in the knee (mid Sep) and was therefore referred to PT. Resting has helped to reduce her pain. She reports using Lidocaine topical patch behind the L knee ~3 wks, but hasn't used it in the past week because she has been trying to recover from an asthma flare up. She just started back to work today since being off sick. 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 Prior Treatments and Tests Gabapentin for R LE compartment syndrome in the R LE (since 2020). X-rays of L knee: Normal. Jt pressure: normal. No arthritis. Developmental History Developmental History Has hx of chronic compartment syndrome in lateral posterior lower leg and was experiencing a lot of similar symptoms in the knee. Treatment Goals Patient/Caregiver Goals Pt goals: Get back to working 8 hrs/2 shifts per week without having to use the knee brace or Lidocaine patch w/o pain. HEP. Prior Functional Status Baseline Function- ADL's Independent Baseline Function- Mobility Independent Baseline Function- Recreation/Hobbies Running avg of 30 miles a week . (10-12 miles per long run on hills). 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 Functional Limitations- Mobility/Gait Stairs ambulation is normal. Tolerates full shift at work if wearing Lidocaine pain patch and brace. W/o Lidocaine patch and brace, would need to sit for job. Functional Limitations- Recreation/ No exercise. Hobbies Functional Limitations- Other Stairs with occasional twinge of pain Personal Factors Other Personal Factors That May Effect Currently being treated for Therapy/Recovery asthma and recently ear infection (10/27/23), ADHD, RLE Chronic compartment syndrome (since 2020), ankle reconstruction surgery at age 11, depression. PT-OP-C Subjective Start: 10/25/23 19:23 Freq: Status: Active Protocol: Document 12/02/23 08:19 LRN (Rec: 12/02/23 09:25 LRN [id number]) OP-PT Subjective Patient Comments Patient Comments In hospital for RSV the day of last treatment. She had been told she was having an allergy flare up. She has been doing a lot of sleeping and had been on meds that prevents her from driving. Since not doing anything her knee is better. Will have to do PT only 1x/week until she is able to return to driving. Pt reports compartment syndrome surgery in R Lower leg 04/2021 (release and removal of scar tissue of anterior lower leg). PT-OP-G Mobility & Gait Start: 10/25/23 19:23 Freq: Status: Active Protocol: Document 12/02/23 08:19 LRN (Rec: 12/02/23 09:25 LRN [id number]) OP Gait Assessment Gait Gait Assistance Required: Independent Comments Gait Comments LLE Stance phase - decreased L hip sway and L foot AD. PT-OP-H Neuro Start: 10/25/23 19:23 Freq: Status: Active Protocol: Document 12/02/23 08:19 LRN (Rec: 12/02/23 09:25 LRN [id number]) Deep Tendon Reflex & Clonus Assessment Deep Tendon Reflex Right Achilles Deep Tendon Reflex 2+ Normal Left Achilles Deep Tendon Reflex 4+ Brisk Bilateral Patellar Deep Tendon Reflex 3+ Normal But Brisk PT-OP-J Posture/Palpation/Skin Start: 10/25/23 19:23 Freq: Status: Active Protocol: Document 10/29/23 14:36 LRN (Rec: 10/29/23 19:20 LRN [id number]) Posture Evaluation Position Standing L-Spine Posture Neutral Shoulder Posture (L) Elevated Pelvis Posture Neutral Weight Distribution Balanced Hip Posture (L) Externally Rotated Knee Posture (R) Genu Recurvatum Foot Arch (L) High Arch,(R) High Arch Palpation Assessment Location L knee Palpation Location L knee joint and adjacent regions Palpation Details No pain. Pt reported initially pain at L Biceps Femoris tendon at proximal fibular head. PT-OP-K Range of Motion Start: 10/25/23 19:23 Freq: Status: Active Protocol: Document 12/02/23 08:19 LRN (Rec: 12/02/23 09:27 LRN [id number]) Lumbar Spine Range of Motion Lumbar Spine Active Degrees Testing Position Standing Flexion 100 Extension 25 Rotation Left 45 Rotation Right 43 Lateral Flexion Left 27 Lateral Flexion Right 15 ROM Limitations Soft Tissue Tightness Comments Trunk AROM: Flexion is 100 deg?s with 70 deg?s hip flexion, Trunk extension is 25 deg?s with 20 deg?s hip extension. Hip Goniometric Range of Motion Hip Right Passive Testing Position Supine Internal Rotation 25 External Rotation 75 Left Passive Testing Position Supine Internal Rotation 30 External Rotation 65 PT-OP-L Special Tests Start: 10/25/23 19:23 Freq: Status: Active Protocol: Document 10/29/23 14:36 LRN (Rec: 10/29/23 19:20 LR [id number]) Special Tests Lumbar Spine Special Tests Slump Test Results + left Knee Special Tests Posterior Sag Test Results Left negative Apley's Compression Test Results Left positive with ER of foot Comments Pain felt at posterior fibular head. Valgus- 25 Degrees Test Results Left negative Valgus- 0 Degrees Test Results Left negative Bounce Home Test Results Left negative Patellar Grind Test Test Results Left negative Omayra's Test Results Left negative Anterior Draw Test Results Left negative Forrest Test Test Results Left negative Neural Special Tests- Lower Body Sciatic Nerve Tension Test Results Left Positive PT-OP-M Strength Start: 10/25/23 19:23 Freq: Status: Active Protocol: Document 10/29/23 14:36 LRN (Rec: 10/29/23 19:20 LR [id number]) Hip Strength Hip Manual Muscle Testing Right Comments Strength is 5/5 Left Flexion (L2) 4 Good Comments Strength is 5/5 except as indicated above Knee Strength Knee Manual Muscle Testing Right Flexion (S2) 5 Normal Extension (L3) 5 Normal Left Flexion (S2) 5 Normal Extension (L3) 5 Normal Ankle/Foot Strength Ankle and Foot Manual Muscle Testing Right Comments Normal strength 5/5. Left Comments Normal strength 5/5. PT-OP-Q Treatments Start: 10/25/23 19:23 Freq: Status: Active Protocol: Document 12/02/23 08:19 LRN (Rec: 12/02/23 09:25 LR [id number]) Therapeutic Exercises Supine Exercises Hip PROM ER/IR Supine Exercise Name Hip ER/IR passive stretch Side bilateral Reps/Minutes 2x each Comments ROM also taken. Cuing to relax hip for ROM/stretch Piriformis stretch Supine Exercise Name KTC w/ankle over knee & single leg knee to opp shldr Reps/Minutes 1' each Comments extra time to determine max curry stretch & for proper leg positioning. Sitting Exercises 90/90 stretch Sitting Exercise Name 90/90 stretch sitting on plinth Side bilateral Reps/Minutes 3' Comments Cuing to keep R ischial tub down during stretch to R hip. Hip AD stretch Sitting Exercise Name V-sit, cuing to fwd bend straight and not off to L side . Reps/Minutes 1' stretch Comments Extra time to correct mvmt pattern & to deter max curry stretch. Kick the head Sitting Exercise Name LLE neural tension glide: Kick the Head for L LE neural glide. Side bilateral Reps/Minutes 10x each Comments cuing to DF ankle max w/o pain Kick the Head off Sitting Exercise Name LLE nerve glide: Kick the Head Off for L LE neural glide Side bilateral Reps/Minutes 10x Comments cuing to DF ankle max w/o pain Standing Exercises Trunk AROM Standing Exercise Name Trunk AROM (flex, ext, michael SB, michael Rot) Comments phys & v cuing to keep knees straight & not rot trunk w/SB. ROM taken Trunk R SB stretch Standing Exercise Name Trunk R SB stretch against wall Side right Reps/Minutes 10 SH x 10 Comments Cued to keep trunk from R Rot. Pt not able, so placed against wall. Self-Care/Home Management Treatment Education Patient Education Home Exercise Program Activities Self-Care/Home Management Activities Issued & reviewed HEP: LE Neural glides slider (Kick the head off) & Tensioner (Kick the head); Trunk R SB stretch & Hip IR stretches (Piriformis - 2 types) and Lateral hip stretch. PT-OP-T Assessment and Plan Start: 10/25/23 19:23 Freq: Status: Active Protocol: Document 12/02/23 08:19 LRN (Rec: 12/02/23 09:25 LRN [id number]) Physical Therapy Assessment Goals Three Impairment L LE neural tension limiting LLE mobility (SLR) Short Term Goal (STG) Pt will demonstrate a negative L PSLR. STG Duration 4 wks-11/29/23 Snf Goal (LTG) No pain with L LE sciatic neural gliding otherwise request further testing for possible lumbar involvement. LTG Duration 10 wks-01/07/24 Two Impairment Pelvic obliquity (L anteriorly rotated innominate), + LLE neural tension Impairment LTG: Stabilize Pelvis with pt able to tolerate reorganizing pantry, washing dishes, laundry before having to sit down to rest. Short Term Goal (STG) Pt will be educated in self correction of L innominate for rotational correction ( initially for a mild L innominate anterior rotation). STG Duration 3 wks-11/22/23 Snf Goal (LTG) Pt will be able to tolerate working 8 hrs/2 shifts per week without having to use the knee brace or Lidocaine patch w/o pain. LTG Duration 10 wks-01/07/24 One Impairment Pt lacks appropriate self care HEP Short Term Goal (STG) Pt will be educated in log roll transfers, proper body mechanics for ADLs, proper sitting/standing posture. STG Duration 3 wks-11/22/23 Photovoltaic Installer Goal (LTG) Pt will be independent in an effective self care HEP for low back/hip mobility & strengthening ex's, and LE strengthening. LTG Duration 10 wks-01/07/24 Assessment Summary Assessment 28 yo female with initial symptoms of lumbar neural involvement, weakness of L hip flexion (L2) and a mildly anteriorly rotated L innominate. Since her RSV illness pt has rested and show improved L neural gliding with pain on neural glide with added max ankle DF for stretch, otherwise no knee pain. DTR's: Achilles brisk L, Normal R, but may be due to compartment syndrome surgery in R Lower leg 04/2021 (release and removal of scar tissue of anterior lower leg). Physical Therapy Plan Frequency and Duration Frequency of Treatment 2x/Week Duration of treatment (weeks) 10 Plan of Care Start Date 10/29/23 Plan of Care End Date 01/07/24 Next Visit Focus/Plan Next Note Type Treatment Note Next Visit Plan Assess hip Special Tests. ( Note: R LE 04/2021 compartment syndrome surgery) Education L/S protective: log roll transfers, body mechanics for ADLs, sitting/standing posture. Educ: Pain managgement and self correction of L innominate for rotational correction. Manual: JMT to correct mildly anteriorly rotated L innominate & tib/fib mobs, Sacral balancing, STM-low back . TFL. Ex: Core stabilization after innominate correction Gait training for transition to running.
--- NOTE | 2023-12-09 15:54 | PT.OTN ---
Current Diagnoses Pain in left knee (12/09/23) Radiculopathy, lumbosacral region (12/09/23) Muscle weakness (generalized) (12/09/23) Segmental and somatic dysfunction of sacral region (12/09/23) Physical Therapy Treatment Note PT-OP-A Visit Information Start: 10/25/23 19:23 Freq: Status: Active Protocol: Document 12/09/23 07:32 LRN (Rec: 12/09/23 08:20 LRN [id number]) Out-Patient Physical Therapy Visit Information Visit Information Visit Type Treatment Note Visit Start Time 07:32 Visit Stop Time 08:17 Total Visit Minutes 45 Visit Number 02/08 Evaluation Information Evaluation Date 10/29/23 Precautions Precautions Ankle reconstruction surgery at age 11. Pt reported compartment syndrome surgery in R Lower leg 04/2021 (release and removal of scar tissue of anterior lower leg). PT-OP-B Current Condition Start: 10/25/23 19:23 Freq: Status: Active Protocol: Document 10/29/23 14:36 LRN (Rec: 10/29/23 19:20 LRN [id number]) Current Condition History of Current Condition Onset Date 08/17/23 Current Complaints L posterior knee pain onset w/ standing & activity. Pain rated 1/10. History of Current Condition Pt reports being seen 2 days ago for asthma exacerbation and is on antibiotics. Ran a half marathon and at mile 5 had hamstrings tightening, did stretches then finished the run, then had pain behind the L knee with inflammation. She reports waking the next day with throbbing pain, like being on fire. Took 2 weeks off running, did research online, and did self help. She returned to running and that night had terrible pain again. States during her time off she did knee ex's and a lot of standing, squatting. She has been able to take time off for the last 5 wks to heal from asthma and has been taking it easy. She felt her symptoms were similar to the pain she has in the R LE that has been diagnosed with compartment syndrome, but states Dr. Reyes found no compartment swelling in the knee (mid Sep) and was therefore referred to PT. Resting has helped to reduce her pain. She reports using Lidocaine topical patch behind the L knee ~3 wks, but hasn't used it in the past week because she has been trying to recover from an asthma flare up. She just started back to work today since being off sick. 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 Prior Treatments and Tests Gabapentin for R LE compartment syndrome in the R LE (since 2020). X-rays of L knee: Normal. Jt pressure: normal. No arthritis. Developmental History Developmental History Has hx of chronic compartment syndrome in lateral posterior lower leg and was experiencing a lot of similar symptoms in the knee. Treatment Goals Patient/Caregiver Goals Pt goals: Get back to working 8 hrs/2 shifts per week without having to use the knee brace or Lidocaine patch w/o pain. HEP. Prior Functional Status Baseline Function- ADL's Independent Baseline Function- Mobility Independent Baseline Function- Recreation/Hobbies Running avg of 30 miles a week . (10-12 miles per long run on hills). 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 Functional Limitations- Mobility/Gait Stairs ambulation is normal. Tolerates full shift at work if wearing Lidocaine pain patch and brace. W/o Lidocaine patch and brace, would need to sit for job. Functional Limitations- Recreation/ No exercise. Hobbies Functional Limitations- Other Stairs with occasional twinge of pain Personal Factors Other Personal Factors That May Effect Currently being treated for Therapy/Recovery asthma and recently ear infection (10/27/23), ADHD, RLE Chronic compartment syndrome (since 2020), ankle reconstruction surgery at age 11, depression. PT-OP-C Subjective Start: 10/25/23 19:23 Freq: Status: Active Protocol: Document 12/09/23 07:32 LRN (Rec: 12/09/23 08:20 LRN [id number]) OP-PT Subjective Patient Comments Patient Comments L knee started hurting behind the knee 3 days later. Pain is occasional. Only thing changed is the exercises. Feels the pain walking, like an ache, lasting a minute ( walking dog, getting up walking to bathroom). Hasn't felt the pain with exercise. PT-OP-G Mobility & Gait Start: 10/25/23 19:23 Freq: Status: Active Protocol: Document 12/02/23 08:19 LRN (Rec: 12/02/23 09:25 LRN [id number]) OP Gait Assessment Gait Gait Assistance Required: Independent Comments Gait Comments LLE Stance phase - decreased L hip sway and L foot AD. PT-OP-H Neuro Start: 10/25/23 19:23 Freq: Status: Active Protocol: Document 12/02/23 08:19 LRN (Rec: 12/02/23 09:25 LRN [id number]) Deep Tendon Reflex & Clonus Assessment Deep Tendon Reflex Right Achilles Deep Tendon Reflex 2+ Normal Left Achilles Deep Tendon Reflex 4+ Brisk Bilateral Patellar Deep Tendon Reflex 3+ Normal But Brisk PT-OP-J Posture/Palpation/Skin Start: 10/25/23 19:23 Freq: Status: Active Protocol: Document 10/29/23 14:36 LRN (Rec: 10/29/23 19:20 LRN [id number]) Posture Evaluation Position Standing L-Spine Posture Neutral Shoulder Posture (L) Elevated Pelvis Posture Neutral Weight Distribution Balanced Hip Posture (L) Externally Rotated Knee Posture (R) Genu Recurvatum Foot Arch (L) High Arch,(R) High Arch Palpation Assessment Location L knee Palpation Location L knee joint and adjacent regions Palpation Details No pain. Pt reported initially pain at L Biceps Femoris tendon at proximal fibular head. PT-OP-K Range of Motion Start: 10/25/23 19:23 Freq: Status: Active Protocol: Document 12/02/23 08:19 LRN (Rec: 12/02/23 09:27 LRN [id number]) Lumbar Spine Range of Motion Lumbar Spine Active Degrees Testing Position Standing Flexion 100 Extension 25 Rotation Left 45 Rotation Right 43 Lateral Flexion Left 27 Lateral Flexion Right 15 ROM Limitations Soft Tissue Tightness Comments Trunk AROM: Flexion is 100 deg?s with 70 deg?s hip flexion, Trunk extension is 25 deg?s with 20 deg?s hip extension. Hip Goniometric Range of Motion Hip Right Passive Testing Position Supine Internal Rotation 25 External Rotation 75 Left Passive Testing Position Supine Internal Rotation 30 External Rotation 65 PT-OP-L Special Tests Start: 10/25/23 19:23 Freq: Status: Active Protocol: Document 10/29/23 14:36 LRN (Rec: 10/29/23 19:20 LRN [id number]) Special Tests Lumbar Spine Special Tests Slump Test Results + left Knee Special Tests Posterior Sag Test Results Left negative Apley's Compression Test Results Left positive with ER of foot Comments Pain felt at posterior fibular head. Valgus- 25 Degrees Test Results Left negative Valgus- 0 Degrees Test Results Left negative Bounce Home Test Results Left negative Patellar Grind Test Test Results Left negative Omayra's Test Results Left negative Anterior Draw Test Results Left negative Forrest Test Test Results Left negative Neural Special Tests- Lower Body Sciatic Nerve Tension Test Results Left Positive PT-OP-M Strength Start: 10/25/23 19:23 Freq: Status: Active Protocol: Document 10/29/23 14:36 LRN (Rec: 10/29/23 19:20 LRN [id number]) Hip Strength Hip Manual Muscle Testing Right Comments Strength is 5/5 Left Flexion (L2) 4 Good Comments Strength is 5/5 except as indicated above Knee Strength Knee Manual Muscle Testing Right Flexion (S2) 5 Normal Extension (L3) 5 Normal Left Flexion (S2) 5 Normal Extension (L3) 5 Normal Ankle/Foot Strength Ankle and Foot Manual Muscle Testing Right Comments Normal strength 5/5. Left Comments Normal strength 5/5. PT-OP-Q Treatments Start: 10/25/23 19:23 Freq: Status: Active Protocol: Document 12/09/23 07:32 LRN (Rec: 12/09/23 08:20 LRN [id number]) Therapeutic Exercises Supine Exercises LE neural stretch Supine Exercise Name Feet on wall with arching/ flattening of back. Reps/Minutes 5' TA/feet off wall Supine Exercise Name TA/feet off wall Reps/Minutes 4' Lateral Hip Stretch Supine Exercise Name Lateral Hip stretch Side bilateral Reps/Minutes 4' Hip PROM ER/IR Supine Exercise Name Hip ER/IR passive stretch Side bilateral Reps/Minutes 2x each Comments ROM also taken. Cuing to relax hip for ROM/stretch Piriformis stretch Supine Exercise Name KTC w/ankle over knee & single leg knee to opp shldr Reps/Minutes 1' each Comments extra time to determine max curry stretch & for proper leg positioning. Sitting Exercises 90/90 stretch Sitting Exercise Name 90/90 stretch sitting on plinth Side bilateral Reps/Minutes 3' Comments Cuing to keep R ischial tub down during stretch to R hip. Hip AD stretch Sitting Exercise Name 1 leg on plinth, cuing to fwd bend straight and not off to L side. Side bilateral Reps/Minutes 2' Comments Extra time to correct mvmt pattern & to deter max curry stretch. Standing Exercises Trunk R SB stretch Standing Exercise Name Trunk R SB stretch against wall Side right Reps/Minutes 10 SH x 10 Comments Cued to keep trunk from R Rot. Pt not able, so placed against wall. Self-Care/Home Management Treatment Education Patient Education Body Mechanics Other Education Discussed and educated pt in posturing with core stability while dog walking and proper posture sitting for prolonged periods to help eliminate the new pain behind the L knee. Discussed at pt request review of her ex workouts for safety . Discussed squats and variations/ lifts/lunges. Pt ok to do lifts if holding wgt close to body & lunges 10 at a time (SIJ innominates neutral). Discussed Posture, body mechanics & positional stresses on body in different positions. Activities Self-Care/Home Management Activities HEP: TA tightening: Feet off wall. Handouts issued for Proper posture in standing and sitting, ADL body mechanics & positional stresses on body in different positions. PT-OP-T Assessment and Plan Start: 10/25/23 19:23 Freq: Status: Active Protocol: Document 12/09/23 07:32 LRN (Rec: 12/09/23 08:20 LRN [id number]) Physical Therapy Assessment Goals Three Impairment L LE neural tension limiting LLE mobility (SLR) Short Term Goal (STG) Pt will demonstrate a negative L PSLR. STG Duration 4 wks-11/29/23 [facility] Goal (LTG) No pain with L LE sciatic neural gliding otherwise request further testing for possible lumbar involvement. LTG Duration 10 wks-01/07/24 Two Impairment Pelvic obliquity (L anteriorly rotated innominate), + LLE neural tension Impairment LTG: Stabilize Pelvis with pt able to tolerate reorganizing pantry, washing dishes, laundry before having to sit down to rest. Short Term Goal (STG) Pt will be educated in self correction of L innominate for rotational correction ( initially for a mild L innominate anterior rotation). 12/09/23: Pelvis in neutral. STG Duration 3 wks-11/22/23 [facility] Goal (LTG) Pt will be able to tolerate working 8 hrs/2 shifts per week without having to use the knee brace or Lidocaine patch w/o pain. LTG Duration 10 wks-01/07/24 One Impairment Pt lacks appropriate self care HEP Short Term Goal (STG) Pt will be educated in log roll transfers, proper body mechanics for ADLs, proper sitting/standing posture. 12/09/23: Educated pt and handouts issued. STG Duration 3 wks-11/22/23 (12/09/23: MET GOAL) [facility] Goal (LTG) Pt will be independent in an effective self care HEP for low back/hip mobility & strengthening ex's, and LE strengthening. 12/09/23: TA strengthening ( on wedge, feet off wall) LTG Duration 10 wks-01/07/24 progressing 12/09/23 Assessment Summary Assessment 28 yo female with initial symptoms of lumbar neural involvement, weakness of L hip flexion (L2) and a mildly anteriorly rotated L innominate. Today, SIJ in neutral bilaterally; therefore held hip Special Testing. Weak TA, pt not able to maintain TA tight with lifting feet off wall more than 2 secs. Good recall of HEP. Physical Therapy Plan Frequency and Duration Frequency of Treatment 2x/Week Duration of treatment (weeks) 10 Plan of Care Start Date 10/29/23 Plan of Care End Date 01/07/24 Next Visit Focus/Plan Next Note Type Treatment Note Next Visit Plan Assess hip Special Tests when pelvis is rotated or if more stable. (Note: Saray MADERA 04/2021 compartment syndrome surgery) Educ: Pain managgement and self correction of L innominate for rotational correction. Manual: If needed: JMT to correct mildly anteriorly rotated L innominate & tib/fib mobs, Sacral balancing, Manual: STM-low back. TFL. Ex: Core stabilization Gait training for transition to running.
--- NOTE | 2023-12-16 11:03 | PT.OTN ---
Current Diagnoses Pain in left knee (12/16/23) Radiculopathy, lumbosacral region (12/16/23) Muscle weakness (generalized) (12/16/23) Segmental and somatic dysfunction of sacral region (12/16/23) Physical Therapy Treatment Note PT-OP-A Visit Information Start: 10/25/23 19:23 Freq: Status: Active Protocol: Document 12/16/23 07:31 LRN (Rec: 12/16/23 08:16 LRN [id number]) Out-Patient Physical Therapy Visit Information Visit Information Visit Type Treatment Note Visit Start Time 07:31 Visit Stop Time 08:11 Visit Number 02/08 Evaluation Information Evaluation Date 10/29/23 Precautions Precautions Ankle reconstruction surgery at age 11. Pt reported compartment syndrome surgery in R Lower leg 04/2021 (release and removal of scar tissue of anterior lower leg). PT-OP-B Current Condition Start: 10/25/23 19:23 Freq: Status: Active Protocol: Document 10/29/23 14:36 LRN (Rec: 10/29/23 19:20 LRN [id number]) Current Condition History of Current Condition Onset Date 08/17/23 Current Complaints L posterior knee pain onset w/ standing & activity. Pain rated 1/10. History of Current Condition Pt reports being seen 2 days ago for asthma exacerbation and is on antibiotics. Ran a half marathon and at mile 5 had hamstrings tightening, did stretches then finished the run, then had pain behind the L knee with inflammation. She reports waking the next day with throbbing pain, like being on fire. Took 2 weeks off running, did research online, and did self help. She returned to running and that night had terrible pain again. States during her time off she did knee ex's and a lot of standing, squatting. She has been able to take time off for the last 5 wks to heal from asthma and has been taking it easy. She felt her symptoms were similar to the pain she has in the R LE that has been diagnosed with compartment syndrome, but states Dr. Reyes found no compartment swelling in the knee (mid Sep) and was therefore referred to PT. Resting has helped to reduce her pain. She reports using Lidocaine topical patch behind the L knee ~3 wks, but hasn't used it in the past week because she has been trying to recover from an asthma flare up. She just started back to work today since being off sick. 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 Prior Treatments and Tests Gabapentin for R LE compartment syndrome in the R LE (since 2020). X-rays of L knee: Normal. Jt pressure: normal. No arthritis. Developmental History Developmental History Has hx of chronic compartment syndrome in lateral posterior lower leg and was experiencing a lot of similar symptoms in the knee. Treatment Goals Patient/Caregiver Goals Pt goals: Get back to working 8 hrs/2 shifts per week without having to use the knee brace or Lidocaine patch w/o pain. HEP. Prior Functional Status Baseline Function- ADL's Independent Baseline Function- Mobility Independent Baseline Function- Recreation/Hobbies Running avg of 30 miles a week . (10-12 miles per long run on hills). 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 Functional Limitations- Mobility/Gait Stairs ambulation is normal. Tolerates full shift at work if wearing Lidocaine pain patch and brace. W/o Lidocaine patch and brace, would need to sit for job. Functional Limitations- Recreation/ No exercise. Hobbies Functional Limitations- Other Stairs with occasional twinge of pain Personal Factors Other Personal Factors That May Effect Currently being treated for Therapy/Recovery asthma and recently ear infection (10/27/23), ADHD, RLE Chronic compartment syndrome (since 2020), ankle reconstruction surgery at age 11, depression. PT-OP-C Subjective Start: 10/25/23 19:23 Freq: Status: Active Protocol: Document 12/16/23 07:31 LRN (Rec: 12/16/23 08:16 LRN [id number]) OP-PT Subjective Patient Comments Patient Comments Not having knee pain. No changes. PT-OP-G Mobility & Gait Start: 10/25/23 19:23 Freq: Status: Active Protocol: Document 12/02/23 08:19 LRN (Rec: 12/02/23 09:25 LRN [id number]) OP Gait Assessment Gait Gait Assistance Required: Independent Comments Gait Comments LLE Stance phase - decreased L hip sway and L foot AD. PT-OP-H Neuro Start: 10/25/23 19:23 Freq: Status: Active Protocol: Document 12/02/23 08:19 LRN (Rec: 12/02/23 09:25 LRN [id number]) Deep Tendon Reflex & Clonus Assessment Deep Tendon Reflex Right Achilles Deep Tendon Reflex 2+ Normal Left Achilles Deep Tendon Reflex 4+ Brisk Bilateral Patellar Deep Tendon Reflex 3+ Normal But Brisk PT-OP-J Posture/Palpation/Skin Start: 10/25/23 19:23 Freq: Status: Active Protocol: Document 10/29/23 14:36 LRN (Rec: 10/29/23 19:20 LRN [id number]) Posture Evaluation Position Standing L-Spine Posture Neutral Shoulder Posture (L) Elevated Pelvis Posture Neutral Weight Distribution Balanced Hip Posture (L) Externally Rotated Knee Posture (R) Genu Recurvatum Foot Arch (L) High Arch,(R) High Arch Palpation Assessment Location L knee Palpation Location L knee joint and adjacent regions Palpation Details No pain. Pt reported initially pain at L Biceps Femoris tendon at proximal fibular head. PT-OP-K Range of Motion Start: 10/25/23 19:23 Freq: Status: Active Protocol: Document 12/02/23 08:19 LRN (Rec: 12/02/23 09:27 LRN [id number]) Lumbar Spine Range of Motion Lumbar Spine Active Degrees Testing Position Standing Flexion 100 Extension 25 Rotation Left 45 Rotation Right 43 Lateral Flexion Left 27 Lateral Flexion Right 15 ROM Limitations Soft Tissue Tightness Comments Trunk AROM: Flexion is 100 deg?s with 70 deg?s hip flexion, Trunk extension is 25 deg?s with 20 deg?s hip extension. Hip Goniometric Range of Motion Hip Right Passive Testing Position Supine Internal Rotation 25 External Rotation 75 Left Passive Testing Position Supine Internal Rotation 30 External Rotation 65 PT-OP-L Special Tests Start: 10/25/23 19:23 Freq: Status: Active Protocol: Document 12/16/23 07:31 LRN (Rec: 12/16/23 11:03 LRN [id number]) Special Tests Hip Special Tests Stinchfield Resisted Hip Flexion Test Results - bilaterally Comments Provocative test for intra- articular pathology Straight Leg Raise Test Results - bilaterally Comments 90 deg's bilaterally. Test for neural tissue BRITTANY Test Results - bilaterally Comments Test for SIJ involvement PT-OP-M Strength Start: 10/25/23 19:23 Freq: Status: Active Protocol: Document 10/29/23 14:36 LRN (Rec: 10/29/23 19:20 LRN [id number]) Hip Strength Hip Manual Muscle Testing Right Comments Strength is 5/5 Left Flexion (L2) 4 Good Comments Strength is 5/5 except as indicated above Knee Strength Knee Manual Muscle Testing Right Flexion (S2) 5 Normal Extension (L3) 5 Normal Left Flexion (S2) 5 Normal Extension (L3) 5 Normal Ankle/Foot Strength Ankle and Foot Manual Muscle Testing Right Comments Normal strength 5/5. Left Comments Normal strength 5/5. PT-OP-Q Treatments Start: 10/25/23 19:23 Freq: Status: Active Protocol: Document 12/16/23 07:31 LRN (Rec: 12/16/23 08:16 LRN [id number]) Therapeutic Exercises Supine Exercises LE neural stretch Supine Exercise Name Holding knee for HS/ankle pumps-HEP issued Reps/Minutes 5' Comments HEP issued, Manual Therapy Treatment Soft Tissue Mobilization TFL Body Location [place] TFL Mobilization Type Instrument Assisted Body Position Sidelying Comments Used roller and plunger (all directions including distraction) Pillow btn knees and towel folded under small of lateral trunk. Self-Care/Home Management Treatment Education Patient Education Home Exercise Program Activities Self-Care/Home Management Activities HEP: LE neutral glide PT-OP-T Assessment and Plan Start: 10/25/23 19:23 Freq: Status: Active Protocol: Document 12/16/23 07:31 LRN (Rec: 12/16/23 08:16 LRN [id number]) Physical Therapy Assessment Goals Three Impairment L LE neural tension limiting LLE mobility (SLR) Short Term Goal (STG) Pt will demonstrate a negative L PSLR. STG Duration 4 wks-11/29/23 (12/16/23: MET GOAL) Senior Care Goal (LTG) No pain with L LE sciatic neural gliding otherwise request further testing for possible lumbar involvement. LTG Duration 10 wks-01/07/24 (12/16/23: MET GOAL) Two Impairment Pelvic obliquity (L anteriorly rotated innominate), + LLE neural tension Impairment LTG: Stabilize Pelvis with pt able to tolerate reorganizing pantry, washing dishes, laundry before having to sit down to rest. Short Term Goal (STG) Pt will be educated in self correction of L innominate for rotational correction ( initially for a mild L innominate anterior rotation). 12/09/23: Pelvis in neutral. : Pelvis in neutral, education in correction not needed. STG Duration 3 wks-11/22/23 (12/16/23: Goal not needed) Propagation Worker Goal (LTG) Pt will be able to tolerate working 8 hrs/2 shifts per week without having to use the knee brace or Lidocaine patch w/o pain. 12/16/23: Pt reporting able to shop all day yesterday without knee pain. LTG Duration 10 wks-01/07/24 progressed 12/16/23 One Impairment Pt lacks appropriate self care HEP Short Term Goal (STG) Pt will be educated in log roll transfers, proper body mechanics for ADLs, proper sitting/standing posture. 12/09/23: Educated pt and handouts issued. STG Duration 3 wks-11/22/23 (12/09/23: MET GOAL) Senior Care Goal (LTG) Pt will be independent in an effective self care HEP for low back/hip mobility & strengthening ex's, and LE strengthening. 12/09/23: TA strengthening ( on wedge, feet off wall) 12/16/23: HEP: supine LE neutral glide. LTG Duration 10 wks-01/07/24 progressing 12/16/23 Assessment Summary Assessment Hip Level, no innominate rotation. Neg for innominate dysfunction. -PSLR. Good understanding of HS stretch w/ neural glide. Physical Therapy Plan Frequency and Duration Frequency of Treatment 2x/Week Duration of treatment (weeks) 10 Plan of Care Start Date 10/29/23 Plan of Care End Date 01/07/24 Next Visit Focus/Plan Next Note Type Treatment Note Next Visit Plan Assess hip Special Tests when pelvis is rotated or if more stable. (Note: R LE 04/2021 compartment syndrome surgery) NEXT: check TFL for tenderness. Educ: Pain management Manual: STM-low back. Ex: Core stabilization Gait training for transition to running. Manual: If needed tib/fib mobs, JMT to correct mildly anteriorly rotated L innominate & Sacral balancing,
--- NOTE | 2023-12-20 09:00 | PT.OTN ---
Current Diagnoses Pain in left knee (12/20/23) Radiculopathy, lumbosacral region (12/20/23) Muscle weakness (generalized) (12/20/23) Segmental and somatic dysfunction of sacral region (12/20/23) Physical Therapy Treatment Note PT-OP-A Visit Information Start: 10/25/23 19:23 Freq: Status: Active Protocol: Document 12/20/23 08:18 SP (Rec: 12/20/23 09:04 SP [id number]) Out-Patient Physical Therapy Visit Information Visit Information Visit Type Treatment Note Visit Start Time 08:18 Visit Stop Time 09:00 Visit Number 03/11 Number of FURNACE FITTER Visits 1 Evaluation Information Evaluation Date 10/29/23 Precautions Precautions Ankle reconstruction surgery at age 11. Pt reported compartment syndrome surgery in R Lower leg 04/2021 (release and removal of scar tissue of anterior lower leg). PT-OP-B Current Condition Start: 10/25/23 19:23 Freq: Status: Active Protocol: Document 10/29/23 14:36 LRN (Rec: 10/29/23 19:20 LRN [id number]) Current Condition History of Current Condition Onset Date 08/17/23 Current Complaints L posterior knee pain onset w/ standing & activity. Pain rated 1/10. History of Current Condition Pt reports being seen 2 days ago for asthma exacerbation and is on antibiotics. Ran a half marathon and at mile 5 had hamstrings tightening, did stretches then finished the run, then had pain behind the L knee with inflammation. She reports waking the next day with throbbing pain, like being on fire. Took 2 weeks off running, did research online, and did self help. She returned to running and that night had terrible pain again. States during her time off she did knee ex's and a lot of standing, squatting. She has been able to take time off for the last 5 wks to heal from asthma and has been taking it easy. She felt her symptoms were similar to the pain she has in the R LE that has been diagnosed with compartment syndrome, but states Dr. Reyes found no compartment swelling in the knee (mid Sep) and was therefore referred to PT. Resting has helped to reduce her pain. She reports using Lidocaine topical patch behind the L knee ~3 wks, but hasn't used it in the past week because she has been trying to recover from an asthma flare up. She just started back to work today since being off sick. 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 Prior Treatments and Tests Gabapentin for R LE compartment syndrome in the R LE (since 2020). X-rays of L knee: Normal. Jt pressure: normal. No arthritis. Developmental History Developmental History Has hx of chronic compartment syndrome in lateral posterior lower leg and was experiencing a lot of similar symptoms in the knee. Treatment Goals Patient/Caregiver Goals Pt goals: Get back to working 8 hrs/2 shifts per week without having to use the knee brace or Lidocaine patch w/o pain. HEP. Prior Functional Status Baseline Function- ADL's Independent Baseline Function- Mobility Independent Baseline Function- Recreation/Hobbies Running avg of 30 miles a week . (10-12 miles per long run on hills). 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 Functional Limitations- Mobility/Gait Stairs ambulation is normal. Tolerates full shift at work if wearing Lidocaine pain patch and brace. W/o Lidocaine patch and brace, would need to sit for job. Functional Limitations- Recreation/ No exercise. Hobbies Functional Limitations- Other Stairs with occasional twinge of pain Personal Factors Other Personal Factors That May Effect Currently being treated for Therapy/Recovery asthma and recently ear infection (10/27/23), ADHD, RLE Chronic compartment syndrome (since 2020), ankle reconstruction surgery at age 11, depression. PT-OP-C Subjective Start: 10/25/23 19:23 Freq: Status: Active Protocol: Document 12/20/23 08:18 SP (Rec: 12/20/23 09:04 SP [id number]) OP-PT Subjective Patient Comments Patient Comments Pt continues to have no pain in L knee. Walking her dog incline/decline continuous sidewalk approx 3 miles in 1 hour. PT-OP-G Mobility & Gait Start: 10/25/23 19:23 Freq: Status: Active Protocol: Document 12/02/23 08:19 LRN (Rec: 12/02/23 09:25 LRN [id number]) OP Gait Assessment Gait Gait Assistance Required: Independent Comments Gait Comments LLE Stance phase - decreased L hip sway and L foot AD. PT-OP-H Neuro Start: 10/25/23 19:23 Freq: Status: Active Protocol: Document 12/02/23 08:19 LRN (Rec: 12/02/23 09:25 LRN [id number]) Deep Tendon Reflex & Clonus Assessment Deep Tendon Reflex Right Achilles Deep Tendon Reflex 2+ Normal Left Achilles Deep Tendon Reflex 4+ Brisk Bilateral Patellar Deep Tendon Reflex 3+ Normal But Brisk PT-OP-J Posture/Palpation/Skin Start: 10/25/23 19:23 Freq: Status: Active Protocol: Document 10/29/23 14:36 LRN (Rec: 10/29/23 19:20 LRN [id number]) Posture Evaluation Position Standing L-Spine Posture Neutral Shoulder Posture (L) Elevated Pelvis Posture Neutral Weight Distribution Balanced Hip Posture (L) Externally Rotated Knee Posture (R) Genu Recurvatum Foot Arch (L) High Arch,(R) High Arch Palpation Assessment Location L knee Palpation Location L knee joint and adjacent regions Palpation Details No pain. Pt reported initially pain at L Biceps Femoris tendon at proximal fibular head. PT-OP-K Range of Motion Start: 10/25/23 19:23 Freq: Status: Active Protocol: Document 12/02/23 08:19 LRN (Rec: 12/02/23 09:27 LRN [id number]) Lumbar Spine Range of Motion Lumbar Spine Active Degrees Testing Position Standing Flexion 100 Extension 25 Rotation Left 45 Rotation Right 43 Lateral Flexion Left 27 Lateral Flexion Right 15 ROM Limitations Soft Tissue Tightness Comments Trunk AROM: Flexion is 100 deg?s with 70 deg?s hip flexion, Trunk extension is 25 deg?s with 20 deg?s hip extension. Hip Goniometric Range of Motion Hip Right Passive Testing Position Supine Internal Rotation 25 External Rotation 75 Left Passive Testing Position Supine Internal Rotation 30 External Rotation 65 PT-OP-L Special Tests Start: 10/25/23 19:23 Freq: Status: Active Protocol: Document 12/16/23 07:31 LRN (Rec: 12/16/23 11:03 LRN [id number]) Special Tests Hip Special Tests [facility] Resisted Hip Flexion Test Results - bilaterally Comments Provocative test for intra- articular pathology Straight Leg Raise Test Results - bilaterally Comments 90 deg's bilaterally. Test for neural tissue BRITTANY Test Results - bilaterally Comments Test for SIJ involvement PT-OP-M Strength Start: 10/25/23 19:23 Freq: Status: Active Protocol: Document 10/29/23 14:36 LRN (Rec: 10/29/23 19:20 LRN [id number]) Hip Strength Hip Manual Muscle Testing Right Comments Strength is 5/5 Left Flexion (L2) 4 Good Comments Strength is 5/5 except as indicated above Knee Strength Knee Manual Muscle Testing Right Flexion (S2) 5 Normal Extension (L3) 5 Normal Left Flexion (S2) 5 Normal Extension (L3) 5 Normal Ankle/Foot Strength Ankle and Foot Manual Muscle Testing Right Comments Normal strength 5/5. Left Comments Normal strength 5/5. PT-OP-Q Treatments Start: 10/25/23 19:23 Freq: Status: Active Protocol: Document 12/20/23 08:18 SP (Rec: 12/20/23 09:04 SP [id number]) Therapeutic Exercises Supine Exercises bug Supine Exercise Name added to HEP- LEs 45 deg Reps/Minutes 5 reps Comments cued TA/draw in for LB support , no lower 45 deg BLE causes L hip popping LE neural stretch Supine Exercise Name Holding knee for HS/ankle pumps-HEP issued Side bilateral Reps/Minutes 5' Comments HEP reviewed Lateral Hip Stretch Supine Exercise Name Lateral Hip stretch Side bilateral Reps/Minutes 30 hold Comments limited time end tx 1 rep Standing Exercises Trunk R SB stretch Standing Exercise Name Trunk R SB stretch Side right Equipment Used back against wall Reps/Minutes 10 SH x 10 Comments good form and stretch oblique, glut med/Max/TFL Other Exercises self STMs Other Exercise Name ball roll TFL, ITB, glut Side bilateral Equipment Used racquetball /lacrosse Reps/Minutes 3 min total Comments good feedback Manual Therapy Treatment Soft Tissue Mobilization TFL Body Location Franklyn TFL & ITB Mobilization Type Instrument Assisted Body Position Sidelying Comments Manual and instruction self good glide and gentle friction glide: Used cupping and debbie tool (all directions including distraction) Good feedback this is so helpful for home, I feel more movement. Ed mindful gentle pressure, painfree, no over pressure bruising, verbalized understanding. PT-OP-T Assessment and Plan Start: 10/25/23 19:23 Freq: Status: Active Protocol: Document 12/20/23 08:18 SP (Rec: 12/20/23 09:04 SP [id number]) Physical Therapy Assessment Goals Three Impairment L LE neural tension limiting LLE mobility (SLR) Short Term Goal (STG) Pt will demonstrate a negative L PSLR. STG Duration 4 wks-11/29/23 (12/16/23: MET GOAL) Manager Agricultural Goal (LTG) No pain with L LE sciatic neural gliding otherwise request further testing for possible lumbar involvement. LTG Duration 10 wks-01/07/24 (12/16/23: MET GOAL) Two Impairment Pelvic obliquity (L anteriorly rotated innominate), + LLE neural tension Impairment LTG: Stabilize Pelvis with pt able to tolerate reorganizing pantry, washing dishes, laundry before having to sit down to rest. Short Term Goal (STG) Pt will be educated in self correction of L innominate for rotational correction ( initially for a mild L innominate anterior rotation). 12/09/23: Pelvis in neutral. : Pelvis in neutral, education in correction not needed. STG Duration 3 wks-11/22/23 (12/16/23: Goal not needed) Mcc Goal (LTG) Pt will be able to tolerate working 8 hrs/2 shifts per week without having to use the knee brace or Lidocaine patch w/o pain. 12/16/23: Pt reporting able to shop all day yesterday without knee pain. LTG Duration 10 wks-01/07/24 progressed 12/16/23 One Impairment Pt lacks appropriate self care HEP Short Term Goal (STG) Pt will be educated in log roll transfers, proper body mechanics for ADLs, proper sitting/standing posture. 12/09/23: Educated pt and handouts issued. STG Duration 3 wks-11/22/23 (12/09/23: MET GOAL) Mcc Goal (LTG) Pt will be independent in an effective self care HEP for low back/hip mobility & strengthening ex's, and LE strengthening. 12/09/23: TA strengthening ( on wedge, feet off wall) 12/16/23: HEP: supine LE neutral glide. 12/20/23: added bug 45 deg angle, self STMs ball wall TFL , glut, ITB, debbie to ITB/TFL- good response.HEP stretching: SB at wall, Lat hip supine. LTG Duration 10 wks-01/07/24 progressing 12/20/23 Assessment Summary Assessment Pt good pelvic alignment noted at arrival. Good feedback to stretch HEP and response to self STMs use ball wall and manual then self use cupping and friction use of debbie tool while under FURNACE FITTER direction to ITB and TFL for carryover for home application. Theses areas feel so much looser/ movement. Discussed use CP for care/recovery if needed and mindful painfree and no over pressure cause bruising, verbalized understanding. Good TA and no LB recruitment to added bug to HEP for spinal stabilization. Physical Therapy Plan Frequency and Duration Frequency of Treatment 2x/Week Duration of treatment (weeks) 10 Plan of Care Start Date 10/29/23 Plan of Care End Date 01/07/24 Therapeutic Interventions Therapeutic Interventions Canalithic Repositioning,Home Exercise Program,Joint Mobilizations,Manual Therapy, Neuromuscular Re-education, Patient/Caregiver Education, Self-Care/Home Management,Soft Tissue Mobilization,Taping, Therapeutic Activities, Therapeutic Exercises Modalities Cold Pack/Ice Massage,Electric Stimulation,Hot Packs, Ultrasound Next Visit Focus/Plan Next Note Type Treatment Note Next Visit Plan Recheck response to cupping/ debbie tool STMs and bug. Assess hip Special Tests when pelvis is rotated or if more stable. (Note: R SANTY 04/2021 compartment syndrome surgery) NEXT: check TFL & ITB for tenderness. Educ: Pain management Manual: STM-low back. Ex: Core stabilization Gait training for transition to running. Manual: If needed tib/fib mobs, JMT to correct mildly anteriorly rotated L innominate & Sacral balancing,
--- NOTE | 2023-12-23 08:18 | PT.OTN ---
Current Diagnoses Pain in left knee (12/23/23) Radiculopathy, lumbosacral region (12/23/23) Muscle weakness (generalized) (12/23/23) Segmental and somatic dysfunction of sacral region (12/23/23) Physical Therapy Treatment Note PT-OP-A Visit Information Start: 10/25/23 19:23 Freq: Status: Active Protocol: Document 12/23/23 07:31 LRN (Rec: 12/23/23 08:18 LRN [id number]) Out-Patient Physical Therapy Visit Information Visit Information Visit Type Treatment Note Visit Start Time 07:31 Visit Stop Time 08:14 Visit Number 04/10 Evaluation Information Evaluation Date 10/29/23 Precautions Precautions Ankle reconstruction surgery at age 11. Pt reported compartment syndrome surgery in R Lower leg 04/2021 (release and removal of scar tissue of anterior lower leg). PT-OP-B Current Condition Start: 10/25/23 19:23 Freq: Status: Active Protocol: Document 10/29/23 14:36 LRN (Rec: 10/29/23 19:20 LRN [id number]) Current Condition History of Current Condition Onset Date 08/17/23 Current Complaints L posterior knee pain onset w/ standing & activity. Pain rated 1/10. History of Current Condition Pt reports being seen 2 days ago for asthma exacerbation and is on antibiotics. Ran a half marathon and at mile 5 had hamstrings tightening, did stretches then finished the run, then had pain behind the L knee with inflammation. She reports waking the next day with throbbing pain, like being on fire. Took 2 weeks off running, did research online, and did self help. She returned to running and that night had terrible pain again. States during her time off she did knee ex's and a lot of standing, squatting. She has been able to take time off for the last 5 wks to heal from asthma and has been taking it easy. She felt her symptoms were similar to the pain she has in the R LE that has been diagnosed with compartment syndrome, but states Dr. Reyes found no compartment swelling in the knee (mid Sep) and was therefore referred to PT. Resting has helped to reduce her pain. She reports using Lidocaine topical patch behind the L knee ~3 wks, but hasn't used it in the past week because she has been trying to recover from an asthma flare up. She just started back to work today since being off sick. Undergrad in [place]. Prior Treatments and Tests Gabapentin for R LE compartment syndrome in the R LE (since 2020). X-rays of L knee: Normal. Jt pressure: normal. No arthritis. Developmental History Developmental History Has hx of chronic compartment syndrome in lateral posterior lower leg and was experiencing a lot of similar symptoms in the knee. Treatment Goals Patient/Caregiver Goals Pt goals: Get back to working 8 hrs/2 shifts per week without having to use the knee brace or Lidocaine patch w/o pain. HEP. Prior Functional Status Baseline Function- ADL's Independent Baseline Function- Mobility Independent Baseline Function- Recreation/Hobbies Running avg of 30 miles a week . (10-12 miles per long run on hills). 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 Functional Limitations- Mobility/Gait Stairs ambulation is normal. Tolerates full shift at work if wearing Lidocaine pain patch and brace. W/o Lidocaine patch and brace, would need to sit for job. Functional Limitations- Recreation/ No exercise. Hobbies Functional Limitations- Other Stairs with occasional twinge of pain Personal Factors Other Personal Factors That May Effect Currently being treated for Therapy/Recovery asthma and recently ear infection (10/27/23), ADHD, RLE Chronic compartment syndrome (since 2020), ankle reconstruction surgery at age 11, depression. PT-OP-C Subjective Start: 10/25/23 19:23 Freq: Status: Active Protocol: Document 12/23/23 07:31 LRN (Rec: 12/23/23 08:18 LRN [id number]) OP-PT Subjective Patient Comments Patient Comments Ran a slow mile yesterday on mainly flat (12 min mile) w/o L knee pain. Has not use a Lidocaine patch since the first november. PT-OP-G Mobility & Gait Start: 10/25/23 19:23 Freq: Status: Active Protocol: Document 12/02/23 08:19 LRN (Rec: 12/02/23 09:25 LRN [id number]) OP Gait Assessment Gait Gait Assistance Required: Independent Comments Gait Comments LLE Stance phase - decreased L hip sway and L foot AD. PT-OP-H Neuro Start: 10/25/23 19:23 Freq: Status: Active Protocol: Document 12/02/23 08:19 LRN (Rec: 12/02/23 09:25 LRN [id number]) Deep Tendon Reflex & Clonus Assessment Deep Tendon Reflex Right Achilles Deep Tendon Reflex 2+ Normal Left Achilles Deep Tendon Reflex 4+ Brisk Bilateral Patellar Deep Tendon Reflex 3+ Normal But Brisk PT-OP-J Posture/Palpation/Skin Start: 10/25/23 19:23 Freq: Status: Active Protocol: Document 10/29/23 14:36 LRN (Rec: 10/29/23 19:20 LRN [id number]) Posture Evaluation Position Standing L-Spine Posture Neutral Shoulder Posture (L) Elevated Pelvis Posture Neutral Weight Distribution Balanced Hip Posture (L) Externally Rotated Knee Posture (R) Genu Recurvatum Foot Arch (L) High Arch,(R) High Arch Palpation Assessment Location L knee Palpation Location L knee joint and adjacent regions Palpation Details No pain. Pt reported initially pain at L Biceps Femoris tendon at proximal fibular head. PT-OP-K Range of Motion Start: 10/25/23 19:23 Freq: Status: Active Protocol: Document 12/02/23 08:19 LRN (Rec: 12/02/23 09:27 LRN [id number]) Lumbar Spine Range of Motion Lumbar Spine Active Degrees Testing Position Standing Flexion 100 Extension 25 Rotation Left 45 Rotation Right 43 Lateral Flexion Left 27 Lateral Flexion Right 15 ROM Limitations Soft Tissue Tightness Comments Trunk AROM: Flexion is 100 deg?s with 70 deg?s hip flexion, Trunk extension is 25 deg?s with 20 deg?s hip extension. Hip Goniometric Range of Motion Hip Right Passive Testing Position Supine Internal Rotation 25 External Rotation 75 Left Passive Testing Position Supine Internal Rotation 30 External Rotation 65 PT-OP-L Special Tests Start: 10/25/23 19:23 Freq: Status: Active Protocol: Document 12/16/23 07:31 LRN (Rec: 12/16/23 11:03 LRN [id number]) Special Tests Hip Special Tests [facility] Resisted Hip Flexion Test Results - bilaterally Comments Provocative test for intra- articular pathology Straight Leg Raise Test Results - bilaterally Comments 90 deg's bilaterally. Test for neural tissue BRITTANY Test Results - bilaterally Comments Test for SIJ involvement PT-OP-M Strength Start: 10/25/23 19:23 Freq: Status: Active Protocol: Document 10/29/23 14:36 LRN (Rec: 10/29/23 19:20 LRN [id number]) Hip Strength Hip Manual Muscle Testing Right Comments Strength is 5/5 Left Flexion (L2) 4 Good Comments Strength is 5/5 except as indicated above Knee Strength Knee Manual Muscle Testing Right Flexion (S2) 5 Normal Extension (L3) 5 Normal Left Flexion (S2) 5 Normal Extension (L3) 5 Normal Ankle/Foot Strength Ankle and Foot Manual Muscle Testing Right Comments Normal strength 5/5. Left Comments Normal strength 5/5. PT-OP-Q Treatments Start: 10/25/23 19:23 Freq: Status: Active Protocol: Document 12/23/23 07:31 LRN (Rec: 12/23/23 08:18 LRN [id number]) Therapeutic Exercises Supine Exercises bug Supine Exercise Name added to HEP- LEs 45 deg Reps/Minutes 5 reps Comments cued TA/draw in for LB support , no lower 45 deg BLE causes L hip popping LE neural stretch Supine Exercise Name Holding knee for HS/ankle pumps-HEP issued Side bilateral Reps/Minutes 5' Comments HEP reviewed Lateral Hip Stretch Supine Exercise Name Lateral Hip stretch Side bilateral Reps/Minutes 30 hold x 2 each Piriformis stretch Supine Exercise Name KTC w/ankle over knee & single leg knee to opp shldr Reps/Minutes 3' Standing Exercises Trunk rot strengthening Standing Exercise Name Trunk rot strengthening Side bilateral Equipment Used Lev 3 TB Reps/Minutes 10x each Trunk R SB stretch Standing Exercise Name Trunk R SB stretch Side right Equipment Used back against wall Reps/Minutes 10 SH x 10 Comments good form and stretch oblique, glut med/Max/TFL Manual Therapy Treatment Soft Tissue Mobilization TFL Body Location Franklyn ITB Mobilization Type Instrument Assisted Body Position Sidelying Comments Used cupping, small & plunger tool (all directions including distraction) Good feedback this is so helpful for home, I feel more movement. Ed mindful gentle pressure, painfree, no over pressure bruising, verbalized understanding. PT-OP-T Assessment and Plan Start: 10/25/23 19:23 Freq: Status: Active Protocol: Document 12/23/23 07:31 LRN (Rec: 12/23/23 08:18 LRN [id number]) Physical Therapy Assessment Goals Three Impairment L LE neural tension limiting LLE mobility (SLR) Short Term Goal (STG) Pt will demonstrate a negative L PSLR. STG Duration 4 wks-11/29/23 (12/16/23: MET GOAL) Ocean Biologist Goal (LTG) No pain with L LE sciatic neural gliding otherwise request further testing for possible lumbar involvement. LTG Duration 10 wks-01/07/24 (12/16/23: MET GOAL) Two Impairment Pelvic obliquity (L anteriorly rotated innominate), + LLE neural tension Impairment LTG: Stabilize Pelvis with pt able to tolerate reorganizing pantry, washing dishes, laundry before having to sit down to rest. Short Term Goal (STG) Pt will be educated in self correction of L innominate for rotational correction ( initially for a mild L innominate anterior rotation). 12/09/23: Pelvis in neutral. 12/16/23: Pelvis in neutral, education in correction not needed. 12/23/23: Pelvis in neutral. STG Duration 3 wks-11/22/23 (12/16/23: Goal not needed) Shelter Goal (LTG) Pt will be able to tolerate working 8 hrs/2 shifts per week without having to use the knee brace or Lidocaine patch w/o pain. 12/16/23: Pt reporting able to shop all day yesterday without knee pain. 12/23/23: On leave still. Goes back to work 01/13/24. LTG Duration 10 wks-01/07/24 progressed 12/16/23 One Impairment Pt lacks appropriate self care HEP Short Term Goal (STG) Pt will be educated in log roll transfers, proper body mechanics for ADLs, proper sitting/standing posture. 12/09/23: Educated pt and handouts issued. STG Duration 3 wks-11/22/23 (12/09/23: MET GOAL) Ocean Biologist Goal (LTG) Pt will be independent in an effective self care HEP for low back/hip mobility & strengthening ex's, and LE strengthening. 12/09/23: TA strengthening ( on wedge, feet off wall) 12/16/23: HEP: supine LE neutral glide. 12/20/23: added bug 45 deg angle, self STMs ball wall TFL , glut, ITB, debbie to ITB/TFL- good response.HEP stretching: SB at wall, Lat hip supine. LTG Duration 10 wks-01/07/24 progressing 12/20/23 Assessment Summary Assessment Pt appears to have had a + response to cupping and debbie tool. No tenderness at L ASIS . ~3 areas of tenderness of IT Band. Doing bug well. Physical Therapy Plan Frequency and Duration Frequency of Treatment 2x/Week Duration of treatment (weeks) 10 Plan of Care Start Date 10/29/23 Plan of Care End Date 01/07/24 Next Visit Focus/Plan Next Note Type Treatment Note Next Visit Plan Assess hip Special Tests when pelvis is rotated or if more stable. (Note: Saray MADERA 04/2021 compartment syndrome surgery) NEXT: Assess run gait and treat as needed. Manual: STM-low back. Educ: Pain management Ex: Core stabilization Gait training for transition to running. Manual: If needed tib/fib mobs, JMT to correct mildly anteriorly rotated L innominate & Sacral balancing,
--- NOTE | 2023-12-27 09:03 | PT.OTN ---
Current Diagnoses Pain in left knee (12/27/23) Radiculopathy, lumbosacral region (12/27/23) Muscle weakness (generalized) (12/27/23) Segmental and somatic dysfunction of sacral region (12/27/23) Physical Therapy Treatment Note PT-OP-A Visit Information Start: 10/25/23 19:23 Freq: Status: Active Protocol: Document 12/27/23 08:20 SP (Rec: 12/27/23 09:04 SP [id number]) Out-Patient Physical Therapy Visit Information Visit Information Visit Type Treatment Note Visit Start Time 08:20 Visit Stop Time 09:03 Visit Number 05/11 Number of MECHANIC SOUND TECHNICIAN Visits 1 Precautions Precautions Ankle reconstruction surgery at age 11. Pt reported compartment syndrome surgery in R Lower leg 04/2021 (release and removal of scar tissue of anterior lower leg). She wears compressions sleeve when runs for support. PT-OP-B Current Condition Start: 10/25/23 19:23 Freq: Status: Active Protocol: Document 10/29/23 14:36 LRN (Rec: 10/29/23 19:20 LRN [id number]) Current Condition History of Current Condition Onset Date 08/17/23 Current Complaints L posterior knee pain onset w/ standing & activity. Pain rated 1/10. History of Current Condition Pt reports being seen 2 days ago for asthma exacerbation and is on antibiotics. Ran a half marathon and at mile 5 had hamstrings tightening, did stretches then finished the run, then had pain behind the L knee with inflammation. She reports waking the next day with throbbing pain, like being on fire. Took 2 weeks off running, did research online, and did self help. She returned to running and that night had terrible pain again. States during her time off she did knee ex's and a lot of standing, squatting. She has been able to take time off for the last 5 wks to heal from asthma and has been taking it easy. She felt her symptoms were similar to the pain she has in the R LE that has been diagnosed with compartment syndrome, but states Dr. Reyes found no compartment swelling in the knee (mid Sep) and was therefore referred to PT. Resting has helped to reduce her pain. She reports using Lidocaine topical patch behind the L knee ~3 wks, but hasn't used it in the past week because she has been trying to recover from an asthma flare up. She just started back to work today since being off sick. 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 Prior Treatments and Tests Gabapentin for R LE compartment syndrome in the R LE (since 2020). X-rays of L knee: Normal. Jt pressure: normal. No arthritis. Developmental History Developmental History Has hx of chronic compartment syndrome in lateral posterior lower leg and was experiencing a lot of similar symptoms in the knee. Treatment Goals Patient/Caregiver Goals Pt goals: Get back to working 8 hrs/2 shifts per week without having to use the knee brace or Lidocaine patch w/o pain. HEP. Prior Functional Status Baseline Function- ADL's Independent Baseline Function- Mobility Independent Baseline Function- Recreation/Hobbies Running avg of 30 miles a week . (10-12 miles per long run on hills). 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 Functional Limitations- Mobility/Gait Stairs ambulation is normal. Tolerates full shift at work if wearing Lidocaine pain patch and brace. W/o Lidocaine patch and brace, would need to sit for job. Functional Limitations- Recreation/ No exercise. Hobbies Functional Limitations- Other Stairs with occasional twinge of pain Personal Factors Other Personal Factors That May Effect Currently being treated for Therapy/Recovery asthma and recently ear infection (10/27/23), ADHD, RLE Chronic compartment syndrome (since 2020), ankle reconstruction surgery at age 11, depression. PT-OP-C Subjective Start: 10/25/23 19:23 Freq: Status: Active Protocol: Document 12/27/23 08:20 SP (Rec: 12/27/23 09:04 SP [id number]) OP-PT Subjective Patient Comments Patient Comments Pt reports did some jogging over this week, approx 12 min mile, felt more muscle soreness hips and didn't need stop, same gentle incline/ decline neighborhood but not completely flat. She wears compression sleeve on R calf. She reports has been tapering down Gabapentin reducing to 600 mg to 500 mg last weekend now reduce to 400mg this coming weekend and if ok will reduce to 300mg in 7 days. Pt reports purchased and received cups various sizes to use at home with good feedback response: ITB and might trial over hunt front/side. PT-OP-G Mobility & Gait Start: 10/25/23 19:23 Freq: Status: Active Protocol: Document 12/02/23 08:19 LRN (Rec: 12/02/23 09:25 LRN [id number]) OP Gait Assessment Gait Gait Assistance Required: Independent Comments Gait Comments LLE Stance phase - decreased L hip sway and L foot AD. PT-OP-H Neuro Start: 10/25/23 19:23 Freq: Status: Active Protocol: Document 12/02/23 08:19 LRN (Rec: 12/02/23 09:25 LRN [id number]) Deep Tendon Reflex & Clonus Assessment Deep Tendon Reflex Right Achilles Deep Tendon Reflex 2+ Normal Left Achilles Deep Tendon Reflex 4+ Brisk Bilateral Patellar Deep Tendon Reflex 3+ Normal But Brisk PT-OP-J Posture/Palpation/Skin Start: 10/25/23 19:23 Freq: Status: Active Protocol: Document 10/29/23 14:36 LRN (Rec: 10/29/23 19:20 LRN [id number]) Posture Evaluation Position Standing L-Spine Posture Neutral Shoulder Posture (L) Elevated Pelvis Posture Neutral Weight Distribution Balanced Hip Posture (L) Externally Rotated Knee Posture (R) Genu Recurvatum Foot Arch (L) High Arch,(R) High Arch Palpation Assessment Location L knee Palpation Location L knee joint and adjacent regions Palpation Details No pain. Pt reported initially pain at L Biceps Femoris tendon at proximal fibular head. PT-OP-K Range of Motion Start: 10/25/23 19:23 Freq: Status: Active Protocol: Document 12/02/23 08:19 LRN (Rec: 12/02/23 09:27 LRN [id number]) Lumbar Spine Range of Motion Lumbar Spine Active Degrees Testing Position Standing Flexion 100 Extension 25 Rotation Left 45 Rotation Right 43 Lateral Flexion Left 27 Lateral Flexion Right 15 ROM Limitations Soft Tissue Tightness Comments Trunk AROM: Flexion is 100 deg?s with 70 deg?s hip flexion, Trunk extension is 25 deg?s with 20 deg?s hip extension. Hip Goniometric Range of Motion Hip Right Passive Testing Position Supine Internal Rotation 25 External Rotation 75 Left Passive Testing Position Supine Internal Rotation 30 External Rotation 65 PT-OP-L Special Tests Start: 10/25/23 19:23 Freq: Status: Active Protocol: Document 12/16/23 07:31 LRN (Rec: 12/16/23 11:03 LRN [id number]) Special Tests Hip [facility] Resisted Hip Flexion Test Results - bilaterally Comments Provocative test for intra- articular pathology Straight Leg Raise Test Results - bilaterally Comments 90 deg's bilaterally. Test for neural tissue BRITTANY Test Results - bilaterally Comments Test for SIJ involvement PT-OP-M Strength Start: 10/25/23 19:23 Freq: Status: Active Protocol: Document 10/29/23 14:36 LRN (Rec: 10/29/23 19:20 LRN [id number]) Hip Strength Hip Manual Muscle Testing Right Comments Strength is 5/5 Left Flexion (L2) 4 Good Comments Strength is 5/5 except as indicated above Knee Strength Knee Manual Muscle Testing Right Flexion (S2) 5 Normal Extension (L3) 5 Normal Left Flexion (S2) 5 Normal Extension (L3) 5 Normal Ankle/Foot Strength Ankle and Foot Manual Muscle Testing Right Comments Normal strength 5/5. Left Comments Normal strength 5/5. PT-OP-Q Treatments Start: 10/25/23 19:23 Freq: Status: Active Protocol: Document 12/27/23 08:20 SP (Rec: 12/27/23 09:04 SP [id number]) Cardio Equipment Treadmill Duration (Minutes) 4 Speed 2.5 walk warm up 2 min> 5.8 jog Incline 0%>1% /c increase emphasis on increased ONEIDA- improved stab Other demonstrated little R>L circumduction ft, jog scissor stepping Therapeutic Exercises Supine Exercises bug Supine Exercise Name reviewed HEP- LEs 45 deg Resistance alternating Reps/Minutes 10 x2 reps Comments good TA draw in, tiring with no hip popping- tiring response Sidelying Exercises hip abd Sidelying Exercise Name added to HEP Side bilateral Reps/Minutes 2x10 each side Comments cued stacked on side, BLE straight, DF neutral- good tire glut med Standing Exercises dynamic warm up pre TM Standing Exercise Name 1. hip flex/ext 2. hip circles 3. squats 4. ecceentric heel raises Side bilateral Equipment Used side TM Reps/Minutes 10 reps each Comments good feedback Trunk rot strengthening Standing Exercise Name Trunk rot strengthening Side bilateral Resistance Lev 3 TB held close at abdomen Reps/Minutes 10x each Comments good opp obliques Trunk R SB stretch Standing Exercise Name Trunk R SB stretch Side left Resistance AROM Equipment Used back against wall Reps/Minutes 10 SH x 10 Comments good form/stretch: oblique, glut med/Max/TFL Manual Therapy Treatment Other Other Manual Treatments R ilium PSIS ant rot more mobile into trunk flexion, L not much mobility. Manual muscle energy: LEs 90/ 90: R isometric hip ext, L hip isometric hip flexion 5sec hold x3 reps= improved B PSIS level and mobility same bilateral. Self-Care/Home Management Treatment Education Patient Education Body Mechanics,Home Exercise Program Other Education added hip abd, education on dynamic AROM self warm up ROM pre jogging, trialed in PT. PT-OP-T Assessment and Plan Start: 10/25/23 19:23 Freq: Status: Active Protocol: Document 12/27/23 08:20 SP (Rec: 12/27/23 09:04 SP [id number]) Physical Therapy Assessment Goals Two Impairment Pelvic obliquity (L anteriorly rotated innominate), + LLE neural tension Impairment LTG: Stabilize Pelvis with pt able to tolerate reorganizing pantry, washing dishes, laundry before having to sit down to rest. Short Term Goal (STG) Pt will be educated in self correction of L innominate for rotational correction ( initially for a mild L innominate anterior rotation). 12/09/23: Pelvis in neutral. 12/16/23: Pelvis in neutral, education in correction not needed. 12/23/23: Pelvis in neutral. 12/27/23: R anterior rot. See Manual Other section for instructed self correction STG Duration 3 wks-11/22/23 (12/16/23: Goal not needed) Halfway Goal (LTG) Pt will be able to tolerate working 8 hrs/2 shifts per week without having to use the knee brace or Lidocaine patch w/o pain. 12/16/23: Pt reporting able to shop all day yesterday without knee pain. 12/23/23: On leave still. Goes back to work 01/13/24. LTG Duration 10 wks-01/07/24 progressed 12/16/23 One Impairment Pt lacks appropriate self care HEP Short Term Goal (STG) Pt will be educated in log roll transfers, proper body mechanics for ADLs, proper sitting/standing posture. 12/09/23: Educated pt and handouts issued. STG Duration 3 wks-11/22/23 (12/09/23: MET GOAL) Manager Document Control Goal (LTG) Pt will be independent in an effective self care HEP for low back/hip mobility & strengthening ex's, and LE strengthening. 12/09/23: TA strengthening ( on wedge, feet off wall) 12/16/23: HEP: supine LE neutral glide. 12/20/23: added bug 45 deg angle, self STMs ball wall TFL , glut, ITB, debbie to ITB/TFL- good response.HEP stretching: SB at wall, Lat hip supine. 12/27/23: added hip abd AROM LTG Duration 10 wks-01/07/24 progressing 12/27/23 Assessment Summary Assessment Pt responded well to manual and continue education on self corrections when checked. Good feedback simple AROM hip abd addition, review core deadbug and trunk resisted rotation abdominal and hip abd muscle tiring engagement R>L hip abd progression strengthening into HEP. Pt was able to trial jogging again with no pain. MECHANIC SOUND TECHNICIAN videotaped pt with her personal phone, her running mechanics on TM, cues for increase ONEIDA and hip R>L ER to allow decreased scissor stepping with reports painfree and stated effort but noted increased stability. Physical Therapy Plan Frequency and Duration Frequency of Treatment 2x/Week Duration of treatment (weeks) 10 Plan of Care Start Date 10/29/23 Plan of Care End Date 01/07/24 Therapeutic Interventions Therapeutic Interventions Canalithic Repositioning,Home Exercise Program,Joint Mobilizations,Manual Therapy, Neuromuscular Re-education, Patient/Caregiver Education, Self-Care/Home Management,Soft Tissue Mobilization,Taping, Therapeutic Activities, Therapeutic Exercises Modalities Cold Pack/Ice Massage,Electric Stimulation,Hot Packs, Ultrasound Next Visit Focus/Plan Next Note Type Treatment Note Next Visit Plan CHeck hip abd added to HEP for support strengthening for change scissor step jogging. Might check jog little further ext and be sure not forceful DF didn't ask 12/27. Assess hip Special Tests when pelvis is rotated or if more stable. (Note: R LE 04/2021 compartment syndrome surgery) NEXT: Assess run gait and treat as needed. Manual: STM-low back. Educ: Pain management Ex: Core stabilization Gait training for transition to running. Manual: If needed tib/fib mobs, JMT to correct mildly anteriorly rotated L innominate & Sacral balancing,
--- NOTE | 2024-01-02 10:20 | PT.OTN ---
Current Diagnoses Pain in left knee (01/02/24) Radiculopathy, lumbosacral region (01/02/24) Muscle weakness (generalized) (01/02/24) Segmental and somatic dysfunction of sacral region (01/02/24) Physical Therapy Treatment Note PT-OP-A Visit Information Start: 10/25/23 19:23 Freq: Status: Active Protocol: Document 01/02/24 08:19 LRN (Rec: 01/02/24 09:09 LRN [id number]) Out-Patient Physical Therapy Visit Information Visit Information Visit Start Time 08:19 Visit Stop Time 08:57 Visit Number 06/10 Evaluation Information Evaluation Date 10/29/23 Precautions Precautions Ankle reconstruction surgery at age 11. Pt reported compartment syndrome surgery in R Lower leg 04/2021 (release and removal of scar tissue of anterior lower leg). She wears compressions sleeve when runs for support. PT-OP-B Current Condition Start: 10/25/23 19:23 Freq: Status: Active Protocol: Document 10/29/23 14:36 LRN (Rec: 10/29/23 19:20 LRN [id number]) Current Condition History of Current Condition Onset Date 08/17/23 Current Complaints L posterior knee pain onset w/ standing & activity. Pain rated 1/10. History of Current Condition Pt reports being seen 2 days ago for asthma exacerbation and is on antibiotics. Ran a half marathon and at mile 5 had hamstrings tightening, did stretches then finished the run, then had pain behind the L knee with inflammation. She reports waking the next day with throbbing pain, like being on fire. Took 2 weeks off running, did research online, and did self help. She returned to running and that night had terrible pain again. States during her time off she did knee ex's and a lot of standing, squatting. She has been able to take time off for the last 5 wks to heal from asthma and has been taking it easy. She felt her symptoms were similar to the pain she has in the R LE that has been diagnosed with compartment syndrome, but states Dr. Reyes found no compartment swelling in the knee (mid Sep) and was therefore referred to PT. Resting has helped to reduce her pain. She reports using Lidocaine topical patch behind the L knee ~3 wks, but hasn't used it in the past week because she has been trying to recover from an asthma flare up. She just started back to work today since being off sick. 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 Prior Treatments and Tests Gabapentin for R LE compartment syndrome in the R LE (since 2020). X-rays of L knee: Normal. Jt pressure: normal. No arthritis. Developmental History Developmental History Has hx of chronic compartment syndrome in lateral posterior lower leg and was experiencing a lot of similar symptoms in the knee. Treatment Goals Patient/Caregiver Goals Pt goals: Get back to working 8 hrs/2 shifts per week without having to use the knee brace or Lidocaine patch w/o pain. HEP. Prior Functional Status Baseline Function- ADL's Independent Baseline Function- Mobility Independent Baseline Function- Recreation/Hobbies Running avg of 30 miles a week . (10-12 miles per long run on hills). 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 Functional Limitations- Mobility/Gait Stairs ambulation is normal. Tolerates full shift at work if wearing Lidocaine pain patch and brace. W/o Lidocaine patch and brace, would need to sit for job. Functional Limitations- Recreation/ No exercise. Hobbies Functional Limitations- Other Stairs with occasional twinge of pain Personal Factors Other Personal Factors That May Effect Currently being treated for Therapy/Recovery asthma and recently ear infection (10/27/23), ADHD, RLE Chronic compartment syndrome (since 2020), ankle reconstruction surgery at age 11, depression. PT-OP-C Subjective Start: 10/25/23 19:23 Freq: Status: Active Protocol: Document 01/02/24 08:19 LRN (Rec: 01/02/24 09:09 LRN [id number]) OP-PT Subjective Patient Comments Patient Comments States when she runs on TM maybe her knees went in, but outside she thnks runs normal. States she has been waking with LBP recently. PT-OP-G Mobility & Gait Start: 10/25/23 19:23 Freq: Status: Active Protocol: Document 12/02/23 08:19 LRN (Rec: 12/02/23 09:25 LRN [id number]) OP Gait Assessment Gait Gait Assistance Required: Independent Comments Gait Comments LLE Stance phase - decreased L hip sway and L foot AD. PT-OP-H Neuro Start: 10/25/23 19:23 Freq: Status: Active Protocol: Document 12/02/23 08:19 LRN (Rec: 12/02/23 09:25 LRN [id number]) Deep Tendon Reflex & Clonus Assessment Deep Tendon Reflex Right Achilles Deep Tendon Reflex 2+ Normal Left Achilles Deep Tendon Reflex 4+ Brisk Bilateral Patellar Deep Tendon Reflex 3+ Normal But Brisk PT-OP-J Posture/Palpation/Skin Start: 10/25/23 19:23 Freq: Status: Active Protocol: Document 10/29/23 14:36 LRN (Rec: 10/29/23 19:20 LRN [id number]) Posture Evaluation Position Standing L-Spine Posture Neutral Shoulder Posture (L) Elevated Pelvis Posture Neutral Weight Distribution Balanced Hip Posture (L) Externally Rotated Knee Posture (R) Genu Recurvatum Foot Arch (L) High Arch,(R) High Arch Palpation Assessment Location L knee Palpation Location L knee joint and adjacent regions Palpation Details No pain. Pt reported initially pain at L Biceps Femoris tendon at proximal fibular head. PT-OP-K Range of Motion Start: 10/25/23 19:23 Freq: Status: Active Protocol: Document 12/02/23 08:19 LRN (Rec: 12/02/23 09:27 LRN [id number]) Lumbar Spine Range of Motion Lumbar Spine Active Degrees Testing Position Standing Flexion 100 Extension 25 Rotation Left 45 Rotation Right 43 Lateral Flexion Left 27 Lateral Flexion Right 15 ROM Limitations Soft Tissue Tightness Comments Trunk AROM: Flexion is 100 deg?s with 70 deg?s hip flexion, Trunk extension is 25 deg?s with 20 deg?s hip extension. Hip Goniometric Range of Motion Hip Right Passive Testing Position Supine Internal Rotation 25 External Rotation 75 Left Passive Testing Position Supine Internal Rotation 30 External Rotation 65 PT-OP-L Special Tests Start: 10/25/23 19:23 Freq: Status: Active Protocol: Document 12/16/23 07:31 LRN (Rec: 12/16/23 11:03 LRN [id number]) Special Tests Hip Special Tests [facility] Resisted Hip Flexion Test Results - bilaterally Comments Provocative test for intra- articular pathology Straight Leg Raise Test Results - bilaterally Comments 90 deg's bilaterally. Test for neural tissue BRITTANY Test Results - bilaterally Comments Test for SIJ involvement PT-OP-M Strength Start: 10/25/23 19:23 Freq: Status: Active Protocol: Document 10/29/23 14:36 LRN (Rec: 10/29/23 19:20 LRN [id number]) Hip Strength Hip Manual Muscle Testing Right Comments Strength is 5/5 Left Flexion (L2) 4 Good Comments Strength is 5/5 except as indicated above Knee Strength Knee Manual Muscle Testing Right Flexion (S2) 5 Normal Extension (L3) 5 Normal Left Flexion (S2) 5 Normal Extension (L3) 5 Normal Ankle/Foot Strength Ankle and Foot Manual Muscle Testing Right Comments Normal strength 5/5. Left Comments Normal strength 5/5. PT-OP-Q Treatments Start: 10/25/23 19:23 Freq: Status: Active Protocol: Document 01/02/24 08:19 LRN (Rec: 01/02/24 09:09 LRN [id number]) Therapeutic Exercises Supine Exercises Lateral Hip Stretch Supine Exercise Name Lateral Hip stretch Side bilateral Reps/Minutes 30 hold x 2 each Piriformis stretch Supine Exercise Name KTC w/ankle over knee & single leg knee to opp shldr Reps/Minutes 3' Sidelying Exercises hip abd Sidelying Exercise Name added to HEP for R hip only for 1 wk Side bilateral Reps/Minutes 2x10 each side Comments cued stacked on side, BLE straight, DF neutral- good tire glut med Other Exercises Child's Pose Reps/Minutes 2' Cat/cow Reps/Minutes 2' Gait Training Gait Activity On Eliptical Description Mvmt correction on eliptical for symmetry Device Used Eliptical lev 1 Distance/Duration 10' Treatment Focus Keeping L knee from caving in on Stance and mvmt fwd phase. On ground gt training Description Walk, jog, run training. Surface level Distance/Duration 10' Treatment Focus Keeping forefeet from adducting. Self-Care/Home Management Treatment Education Patient Education Pain Management Other Education Discussed & educated pt in pain management using RICE treatment, with range for use of ice for 10-20'. Activities Self-Care/Home Management Activities Issued and reviewed handouts for self care RICE treatment. PT-OP-T Assessment and Plan Start: 10/25/23 19:23 Freq: Status: Active Protocol: Document 01/02/24 08:19 LRN (Rec: 01/02/24 09:09 LRN [id number]) Physical Therapy Assessment Goals Two Impairment Pelvic obliquity (L anteriorly rotated innominate), + LLE neural tension Impairment LTG: Stabilize Pelvis with pt able to tolerate reorganizing pantry, washing dishes, laundry before having to sit down to rest. Short Term Goal (STG) Pt will be educated in self correction of L innominate for rotational correction ( initially for a mild L innominate anterior rotation). 12/09/23: Pelvis in neutral. 12/16/23: Pelvis in neutral, education in correction not needed. 12/23/23: Pelvis in neutral. 12/27/23: R anterior rot. See Manual Other section for instructed self correction STG Duration 3 wks-11/22/23 (12/16/23: Goal not needed) [facility] Goal (LTG) Pt will be able to tolerate working 8 hrs/2 shifts per week without having to use the knee brace or Lidocaine patch w/o pain. 12/16/23: Pt reporting able to shop all day yesterday without knee pain. 12/23/23: On leave still. Goes back to work 01/13/24. LTG Duration 10 wks-01/07/24 progressed 12/16/23 One Impairment Pt lacks appropriate self care HEP Short Term Goal (STG) Pt will be educated in log roll transfers, proper body mechanics for ADLs, proper sitting/standing posture. 12/09/23: Educated pt and handouts issued. STG Duration 3 wks-11/22/23 (12/09/23: MET GOAL) [facility] Goal (LTG) Pt will be independent in an effective self care HEP for low back/hip mobility & strengthening ex's, and LE strengthening. 12/09/23: TA strengthening ( on wedge, feet off wall) 12/16/23: HEP: supine LE neutral glide. 12/20/23: added bug 45 deg angle, self STMs ball wall TFL , glut, ITB, debbie to ITB/TFL- good response.HEP stretching: SB at wall, Lat hip supine. 12/27/23: added hip abd AROM 01/02/24: I/S HEP: Hip AB with feet pointing towards floor, R side only to start, 8x, working up to 8x 3, then 10x 3. LTG Duration 10 wks-01/07/24 progressing 01/02/24 Assessment Summary Assessment 28 yo female with initial symptoms of lumbar neural involvement, weakness of L hip flexion (L2) and a mildly anteriorly rotated L innominate. She comes today reporting running 1.5 miles and no onset of kne pain. She is having lower back at sacral level pain that may be due to swelling (palpable) and from stomach sleeping. Pt may appear to be collapsing in on the L knee with swing through (on eliptical), but it appears she has hip AB weakness and is more heavily wbing on RLE as noted the same while she is in quiet standing. Pt running with forefeet adducting, possibly from shoes. Pt will check with running store for possible purchase of new shoes ([employer]). Physical Therapy Plan Frequency and Duration Frequency of Treatment 2x/Week Duration of treatment (weeks) 10 Plan of Care Start Date 10/29/23 Plan of Care End Date 01/07/24 Next Visit Focus/Plan Next Note Type Discharge Summary Next Visit Plan Possible DC to HEP, or PN to extend POC. Assess changes in jog, run and on eliptical for corrections as noted above . Assess hip Special Tests when pelvis is rotated or if more stable. (Note: R SANTY 04/2021 compartment syndrome surgery) NEXT: Assess run gait and treat as needed. Manual: STM-low back. Educ: Pain management. Ex: Core stabilization Gait training for transition to running. Manual: If needed tib/fib mobs, JMT to correct mildly anteriorly rotated L innominate & Sacral balancing,
--- NOTE | 2024-01-07 15:43 | PT.OTN ---
Current Diagnoses Pain in left knee (01/07/24) Radiculopathy, lumbosacral region (01/07/24) Muscle weakness (generalized) (01/07/24) Segmental and somatic dysfunction of sacral region (01/07/24) Physical Therapy Treatment Note PT-OP-A Visit Information Start: 10/25/23 19:23 Freq: Status: Active Protocol: Document 01/07/24 13:48 LRN (Rec: 01/07/24 14:15 LRN [id number]) Out-Patient Physical Therapy Visit Information Visit Information Visit Type Treatment Note Visit Start Time 13:48 Visit Stop Time 14:26 Visit Number 07/11 Evaluation Information Evaluation Date 10/29/23 Precautions Precautions Ankle reconstruction surgery at age 11. Pt reported compartment syndrome surgery in R Lower leg 04/2021 (release and removal of scar tissue of anterior lower leg). She wears compressions sleeve when runs for support. PT-OP-B Current Condition Start: 10/25/23 19:23 Freq: Status: Active Protocol: Document 10/29/23 14:36 LRN (Rec: 10/29/23 19:20 LRN [id number]) Current Condition History of Current Condition Onset Date 08/17/23 Current Complaints L posterior knee pain onset w/ standing & activity. Pain rated 1/10. History of Current Condition Pt reports being seen 2 days ago for asthma exacerbation and is on antibiotics. Ran a half marathon and at mile 5 had hamstrings tightening, did stretches then finished the run, then had pain behind the L knee with inflammation. She reports waking the next day with throbbing pain, like being on fire. Took 2 weeks off running, did research online, and did self help. She returned to running and that night had terrible pain again. States during her time off she did knee ex's and a lot of standing, squatting. She has been able to take time off for the last 5 wks to heal from asthma and has been taking it easy. She felt her symptoms were similar to the pain she has in the R LE that has been diagnosed with compartment syndrome, but states Dr. Reyes found no compartment swelling in the knee (mid Sep) and was therefore referred to PT. Resting has helped to reduce her pain. She reports using Lidocaine topical patch behind the L knee ~3 wks, but hasn't used it in the past week because she has been trying to recover from an asthma flare up. She just started back to work today since being off sick. 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 Prior Treatments and Tests Gabapentin for R LE compartment syndrome in the R LE (since 2020). X-rays of L knee: Normal. Jt pressure: normal. No arthritis. Developmental History Developmental History Has hx of chronic compartment syndrome in lateral posterior lower leg and was experiencing a lot of similar symptoms in the knee. Treatment Goals Patient/Caregiver Goals Pt goals: Get back to working 8 hrs/2 shifts per week without having to use the knee brace or Lidocaine patch w/o pain. HEP. Prior Functional Status Baseline Function- ADL's Independent Baseline Function- Mobility Independent Baseline Function- Recreation/Hobbies Running avg of 30 miles a week . (10-12 miles per long run on hills). 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 Functional Limitations- Mobility/Gait Stairs ambulation is normal. Tolerates full shift at work if wearing Lidocaine pain patch and brace. W/o Lidocaine patch and brace, would need to sit for job. Functional Limitations- Recreation/ No exercise. Hobbies Functional Limitations- Other Stairs with occasional twinge of pain Personal Factors Other Personal Factors That May Effect Currently being treated for Therapy/Recovery asthma and recently ear infection (10/27/23), ADHD, RLE Chronic compartment syndrome (since 2020), ankle reconstruction surgery at age 11, depression. PT-OP-C Subjective Start: 10/25/23 19:23 Freq: Status: Active Protocol: Document 01/07/24 13:48 LRN (Rec: 01/07/24 14:15 LRN [id number]) OP-PT Subjective Patient Comments Patient Comments After last session she had the next day L hip AD discomfort and posterior knee pain. Thinks she will be able to stand 8 hrs without need for knee brace or use of Lidocaine patch. Feels ready to be placed on HEP. Patient Questionnaires Lower Extremity Functional Scale LEFS Score 75 LEFS Impairment 1 to 19% Impaired (Score 63-79 ) PT-OP-G Mobility & Gait Start: 10/25/23 19:23 Freq: Status: Active Protocol: Document 12/02/23 08:19 LRN (Rec: 12/02/23 09:25 LRN [id number]) OP Gait Assessment Gait Gait Assistance Required: Independent Comments Gait Comments LLE Stance phase - decreased L hip sway and L foot AD. PT-OP-H Neuro Start: 10/25/23 19:23 Freq: Status: Active Protocol: Document 12/02/23 08:19 LRN (Rec: 12/02/23 09:25 LRN [id number]) Deep Tendon Reflex & Clonus Assessment Deep Tendon Reflex Right Achilles Deep Tendon Reflex 2+ Normal Left Achilles Deep Tendon Reflex 4+ Brisk Bilateral Patellar Deep Tendon Reflex 3+ Normal But Brisk PT-OP-J Posture/Palpation/Skin Start: 10/25/23 19:23 Freq: Status: Active Protocol: Document 10/29/23 14:36 LRN (Rec: 10/29/23 19:20 LRN [id number]) Posture Evaluation Position Standing L-Spine Posture Neutral Shoulder Posture (L) Elevated Pelvis Posture Neutral Weight Distribution Balanced Hip Posture (L) Externally Rotated Knee Posture (R) Genu Recurvatum Foot Arch (L) High Arch,(R) High Arch Palpation Assessment Location L knee Palpation Location L knee joint and adjacent regions Palpation Details No pain. Pt reported initially pain at L Biceps Femoris tendon at proximal fibular head. PT-OP-K Range of Motion Start: 10/25/23 19:23 Freq: Status: Active Protocol: Document 01/07/24 13:48 LRN (Rec: 01/07/24 14:19 LRN [id number]) Hip Goniometric Range of Motion Hip Right Passive Testing Position Supine Internal Rotation 30 External Rotation 65 Left Passive Testing Position Supine Internal Rotation 45 External Rotation 65 PT-OP-L Special Tests Start: 10/25/23 19:23 Freq: Status: Active Protocol: Document 01/07/24 13:48 LRN (Rec: 01/07/24 14:19 LRN [id number]) Special Tests Hip Special Tests [facility] Resisted Hip Flexion Test Results - bilaterally Straight Leg Raise Test Results - bilaterally Comments SLR is 85 deg's left, 95 deg's right. BRITTANY Test Results - bilaterally PT-OP-M Strength Start: 10/25/23 19:23 Freq: Status: Active Protocol: Document 10/29/23 14:36 LRN (Rec: 10/29/23 19:20 LRN [id number]) Hip Strength Hip Manual Muscle Testing Right Comments Strength is 5/5 Left Flexion (L2) 4 Good Comments Strength is 5/5 except as indicated above Knee Strength Knee Manual Muscle Testing Right Flexion (S2) 5 Normal Extension (L3) 5 Normal Left Flexion (S2) 5 Normal Extension (L3) 5 Normal Ankle/Foot Strength Ankle and Foot Manual Muscle Testing Right Comments Normal strength 5/5. Left Comments Normal strength 5/5. PT-OP-Q Treatments Start: 10/25/23 19:23 Freq: Status: Active Protocol: Document 01/07/24 13:48 LRN (Rec: 01/07/24 14:15 LRN [id number]) Therapeutic Exercises Supine Exercises LE neural stretch Supine Exercise Name Holding knee for HS/ankle pumps-HEP issued Side bilateral Reps/Minutes 5' Comments HEP reviewed Lateral Hip Stretch Supine Exercise Name Lateral Hip stretch Side bilateral Reps/Minutes 30 hold x 2 each Hip PROM ER/IR Supine Exercise Name Hip ER/IR passive stretch Side bilateral Reps/Minutes 2x each Comments ROM also taken. Cuing to relax hip for ROM/stretch Piriformis stretch Supine Exercise Name KTC w/ankle over knee & single leg knee to opp shldr Reps/Minutes 3' Gait Training Gait Activity On Eliptical Description Mvmt correction on eliptical for back leg during stance phase Device Used Eliptical lev 1 Distance/Duration 2' Treatment Focus Keeping L knee from full extension on opp leg heel strike (knee flex opp) On ground gt training Description Walk, jog, run training in her old [employer] shoes. Surface level Distance/Duration 18' Treatment Focus Keeping forefeet from adducting. Comments With walk and light jog the R forefoot adducting. Assessed wear of old shoes with recommendation pt try new [employer] shoes vs Ultra shoes ( from last session running). PT-OP-T Assessment and Plan Start: 10/25/23 19:23 Freq: Status: Active Protocol: Document 01/07/24 13:48 LRN (Rec: 01/07/24 14:15 LRN [id number]) Physical Therapy Assessment Goals Three Impairment L LE neural tension limiting LLE mobility (SLR) Short Term Goal (STG) Pt will demonstrate a negative L PSLR. STG Duration 4 wks-11/29/23 (12/16/23: MET GOAL) [employer] Goal (LTG) No pain with L LE sciatic neural gliding otherwise request further testing for possible lumbar involvement. LTG Duration 10 wks-01/07/24 (12/16/23: MET GOAL) Two Impairment Pelvic obliquity (L anteriorly rotated innominate), + LLE neural tension Impairment LTG: Stabilize Pelvis with pt able to tolerate reorganizing pantry, washing dishes, laundry before having to sit down to rest. Short Term Goal (STG) Pt will be educated in self correction of L innominate for rotational correction ( initially for a mild L innominate anterior rotation). 12/09/23: Pelvis in neutral. 12/16/23: Pelvis in neutral, education in correction not needed. 12/23/23: Pelvis in neutral. 12/27/23: R anterior rot. See Manual Other section for instructed self correction STG Duration 3 wks-11/22/23 (12/16/23: Goal not needed) Alf Goal (LTG) Pt will be able to tolerate working 8 hrs/2 shifts per week without having to use the knee brace or Lidocaine patch w/o pain. 12/16/23: Pt reporting able to shop all day yesterday without knee pain. 12/23/23: On leave still. Goes back to work 01/13/24. 01/07/24: Pt hasn't returned to work but feels she will be able to stand for work 8 hrs w /o needing knee brace or lidocaine patch. LTG Duration 10 wks-01/07/24 (01/07/24: MET GOAL) One Impairment Pt lacks appropriate self care HEP Short Term Goal (STG) Pt will be educated in log roll transfers, proper body mechanics for ADLs, proper sitting/standing posture. 12/09/23: Educated pt and handouts issued. STG Duration 3 wks-11/22/23 (12/09/23: MET GOAL) Alf Goal (LTG) Pt will be independent in an effective self care HEP for low back/hip mobility & strengthening ex's, and LE strengthening. 12/09/23: TA strengthening ( on wedge, feet off wall) 12/16/23: HEP: supine LE neutral glide. 2/2/24: added bug 45 deg angle, self STMs ball wall TFL , glut, ITB, debbie to ITB/TFL- good response.HEP stretching: SB at wall, Lat hip supine. 12/27/23: added hip abd AROM 01/02/24: I/S HEP: Hip AB with feet pointing towards floor, R side only to start, 8x, working up to 8x 3, then 10x 3. LTG Duration 10 wks-01/07/24 (01/07/24: MET GOAL) Assessment Summary Assessment 28 yo female with initial symptoms of lumbar neural involvement, weakness of L hip flexion (L2) and a mildly anteriorly rotated L innominate. Today she demonstrates normal positioning of her pelvis and her mobility is symmetrical except with R hip IR and hamstring mobility. The pt has a self care HEP to address her areas of tightness and she has been educated in self care pain management if other issues arise. She has no complaints of back or knee pain. The pt is expected to be able to progress her running on her own over time now that she has a good idea of the type of shoes she needs to buy for her running and the corrections in her running she needs to focus on. If the pt develops a pelvic obliquity in the future, a referral to return to physical therapy would be appropriate. Physical Therapy Plan Frequency and Duration Frequency of Treatment 2x/Week Duration of treatment (weeks) 10 Plan of Care Start Date 10/29/23 Plan of Care End Date 01/07/24 Discharge Physical Therapy Discharge Reasons Goals Met Discharge Comments Thank you for your referral.
== END 2024-01-08 09:39 | disposition home or self-care (01) ==
LOC: PHYS 13:45
PROVIDERS: Family Provider Orthopaedic Surgery Foot and Ankle Surgery; PCP Orthopaedic Surgery Foot and Ankle Surgery; Referring Provider Orthopaedic Surgery Foot and Ankle Surgery; Visit Provider Orthopaedic Surgery Foot and Ankle Surgery
DX: M25.562 Pain in left knee (principal); M62.81 Muscle weakness (generalized); M99.04 Segmental and somatic dysfunction of sacral region; M54.17 Radiculopathy, lumbosacral region
CPT/HCPCS: 97110; 97116; 97140; 97162; 97535

== ENCOUNTER → 2024-03-06 16:11 | Outpatient (CLI) | payer OTHER, MEDICAID, SELFPAY ==
[2024-03-06 17:00] LABS: Lithium 0.3 mmol/L (0.6-1.2)
== END ==
PROVIDERS: Family Provider Orthopaedic Surgery Foot and Ankle Surgery; PCP Family Medicine; Referring Provider Family Medicine; Visit Provider Family Medicine
DX: F31.12 Bipolar disorder, current episode manic without psychotic features, moderate (principal)
CPT/HCPCS: 36415; 80178

== ENCOUNTER → 2024-06-04 19:54 | Outpatient (CLI) | payer OTHER, MEDICAID, SELFPAY ==
--- NOTE | 2024-06-04 19:55 | DI.MRI.S_ITS ---
PROCEDURE: MR KNEE LT WO CON INDICATIONS: INTERNAL DERANGEMENT OF LEFT KNEE TECHNIQUE: Noncontrast sagittal PD fast spin echo and T2 fast spin echo with fat saturation, sagittal 3-D FLASH with fat saturation; coronal T1 spin echo and PD fast spin echo with fat saturation, and axial PD fast spin echo with fat saturation through the knee. COMPARISON: [facility] [place], CR, XR KNEE 4+ VIEWS LEFT, 10/02/2023, 10:47. FINDINGS: Image quality: Excellent. Menisci: The medial and lateral menisci demonstrate normal morphology and internal signal. The meniscal root ligaments appear intact. Cruciate ligaments: The anterior and posterior cruciate ligaments appear intact. Medial structures: The medial collateral ligament appears thickened at its femoral insertion. Visualized portions of the pes anserinus tendons appear normal. No abnormal bursal fluid. Lateral structures: The lateral collateral ligament, long and short heads of the biceps femoris tendon appear intact. The popliteus tendon appears normal. Iliotibial band appears normal. Anterior structures: The quadriceps and patellar tendons appear intact. Patellar alignment is normal. No femoral trochlear dysplasia or ventral trochlear prominence. No edema in the infrapatellar fat pad. Bones and cartilage: No bone marrow contusions or fractures. Low-grade chondromalacia in medial femoral tibial compartment is seen. Articulating cartilage in patellofemoral compartment and lateral femoral tibial compartment is normal in thickness. Joint space: There is small knee joint fluid. No Dior's cyst. Normal appearing synovial plicae are incidentally noted. IMPRESSION: 1. The cruciate ligaments are intact. 2. No evidence of focal meniscal tear. 3. Low-grade proximal MCL sprain. 4. Low-grade chondromalacia in medial femoral tibial compartment. No fracture or dislocation. Small joint effusion, no loose bodies. Dictated by: Stevo Santiago M.D. on 06/05/2024 at 9:44 Approved by: Stevo Santiago M.D. on 06/05/2024 at 9:55
== END ==
PROVIDERS: Family Provider Orthopaedic Surgery Foot and Ankle Surgery; PCP Family Medicine; Referring Provider Orthopaedic Surgery Foot and Ankle Surgery; Visit Provider Orthopaedic Surgery Foot and Ankle Surgery
DX: S83.412A Sprain of medial collateral ligament of left knee, initial encounter (principal); M23.92 Unspecified internal derangement of left knee; M94.262 Chondromalacia, left knee; M25.462 Effusion, left knee
CPT/HCPCS: 73721

== ENCOUNTER → 2024-08-06 09:25 | Outpatient (CLI) | payer OTHER, MEDICAID, SELFPAY ==
[2024-08-06 11:03] LABS: Lithium 0.7 mmol/L (0.6-1.2)
== END ==
PROVIDERS: Family Provider Orthopaedic Surgery Foot and Ankle Surgery; PCP Family Medicine; Referring Provider Family Medicine; Visit Provider Family Medicine
DX: F31.12 Bipolar disorder, current episode manic without psychotic features, moderate (principal)
CPT/HCPCS: 36415; 80178

== ENCOUNTER → 2025-03-18 12:05 | Outpatient (CLI) | payer OTHER, SELFPAY ==
--- NOTE | 2025-03-18 12:06 | DI.RAD.S_ITS ---
PROCEDURE: XR HAND LT MIN 3V INDICATIONS: hit hand hard on wall last night TECHNIQUE: 3 views of the hand(s) acquired. COMPARISON: [facility], CR, XR WRIST LT MIN 3V, 03/18/2025, 12:06. [facility], CR, XR HAND RT MIN 3V, 04/14/2020, 19:07. FINDINGS: Bones: No fractures or dislocations. Carpal bones are normally aligned. No suspicious bony lesions. Soft tissues: No suspicious soft tissue calcifications. IMPRESSION: No visualized acute fracture or dislocation. However, if clinical concern and/or pain persist, short interval imaging followup in 7-10 days is recommended, as occult injury cannot be definitively excluded. Dictated by: Ashley Washington M.D. on 03/18/2025 at 13:24 Approved by: Ashley Washington M.D. on 03/18/2025 at 13:29
--- NOTE | 2025-03-18 12:06 | DI.RAD.S_ITS ---
PROCEDURE: XR WRIST LT MIN 3V INDICATIONS: hit hand hard on wall last night TECHNIQUE: 4 views of the wrist were acquired. COMPARISON: [facility], CR, XR WRIST RT MIN 3V, 04/14/2020, 19:07. FINDINGS: Bones: No fractures or dislocations. No suspicious bony lesions. Soft tissues: No suspicious soft tissue calcifications. IMPRESSION: No visualized acute fracture or dislocation. However, if clinical concern and/or pain persist, short interval imaging followup in 7-10 days is recommended, as occult injury cannot be definitively excluded. Dictated by: Ashley Washington M.D. on 03/18/2025 at 13:29 Approved by: Ashley Washington M.D. on 03/18/2025 at 13:30
== END ==
PROVIDERS: Family Provider Orthopaedic Surgery Foot and Ankle Surgery; PCP Family Medicine; Referring Provider Physician Assistant; Visit Provider Physician Assistant
DX: S60.222A Contusion of left hand, initial encounter (principal); S66.912A Strain of unspecified muscle, fascia and tendon at wrist and hand level, left hand, initial encounter; S69.90XA Unspecified injury of unspecified wrist, hand and finger(s), initial encounter; W18.09XA Striking against other object with subsequent fall, initial encounter
CPT/HCPCS: 73110; 73130

== ENCOUNTER → 2025-05-18 17:34 | Outpatient (CLI) | payer OTHER, SELFPAY ==
[2025-05-18 18:14] LABS: Lithium 0.3 mmol/L (0.6-1.2)
== END ==
PROVIDERS: Family Provider Orthopaedic Surgery Foot and Ankle Surgery; PCP Family Medicine; Referring Provider Family Medicine; Visit Provider Family Medicine
DX: F31.12 Bipolar disorder, current episode manic without psychotic features, moderate (principal); F43.10 Post-traumatic stress disorder, unspecified
CPT/HCPCS: 36415; 80178

== ENCOUNTER → 2025-06-18 12:46 | Outpatient (CLI) | payer OTHER, SELFPAY ==
[2025-06-18 13:49] LABS: Lithium 0.3 mmol/L (0.6-1.2)
== END ==
PROVIDERS: Family Provider Orthopaedic Surgery Foot and Ankle Surgery; PCP Family Medicine; Referring Provider Family Medicine; Visit Provider Family Medicine
DX: F31.12 Bipolar disorder, current episode manic without psychotic features, moderate (principal); F43.10 Post-traumatic stress disorder, unspecified
CPT/HCPCS: 36415; 80178

== ENCOUNTER → 2025-08-19 14:51 | Outpatient (CLI) | payer OTHER, SELFPAY | LOC: PHYS 14:52 | PROVIDERS: Family Provider Family Medicine; PCP Family Medicine; Referring Provider Orthopaedic Surgery Foot and Ankle Surgery; Visit Provider Orthopaedic Surgery Foot and Ankle Surgery | DX: M79.604 Pain in right leg (principal) | CPT/HCPCS: 95886; 95912 ==

== ENCOUNTER → 2025-09-30 17:32 | Outpatient (CLI) | payer OTHER, SELFPAY ==
[2025-09-30 18:31] LABS: Lithium 0.5 mmol/L (0.6-1.2)
== END ==
PROVIDERS: Family Provider Family Medicine; PCP Family Medicine; Referring Provider Family Medicine; Visit Provider Family Medicine
DX: F31.12 Bipolar disorder, current episode manic without psychotic features, moderate (principal); F43.10 Post-traumatic stress disorder, unspecified
CPT/HCPCS: 36415; 80178

== ENCOUNTER 2025-10-04 17:57 | Emergency (ER) | payer OTHER, SELFPAY ==
[2025-10-04 18:08] VITALS: BP 128/72; PULSE 87; RESP 17; TEMP 36.6; O2SAT 98
--- NOTE | 2025-10-04 18:49 | ED.HA ---
HPI - Headache <Joey Shell MD - Last Filed: 10/07/25 07:55> General Chief Complaint: Headache Stated Complaint: Migraine, vis dist, confusion, x 1week Time Seen by Provider: 10/04/25 18:08 Mode of arrival: Ambulatory History of Present Illness HPI Narrative: 30-year-old female with extensive psychiatric history who presents with on and off headache with migrainous features starting August 24. Patient describes right-sided headache, photophobia, nausea, no vomiting. Describes of poor p.o. intake over the past few days. Patient started taking sumatriptan that was prescribed by her PMD. Of over the last 48 hours she has had 2 episodes of confusion as well as near-syncope. Patient has no family history of any aneurysms no family members with young CVAs. Patient neurologically intact. She is very photophobic currently. Related Data Home Medications ?Medication ?Instructions ?Recorded ?Confirmed bupropion HCl 300 mg 24 hr tablet, 300 mg PO DAILY 03/18/25 03/18/25 extended release fluconazole 100 mg tablet mg PO 03/18/25 03/18/25 fluoxetine 10 mg capsule 10 mg PO DAILY 03/18/25 03/18/25 lithium carbonate 300 mg 300 mg PO BID 03/18/25 03/18/25 tablet,extended release propranolol 10 mg tablet 10 mg PO DAILY 03/18/25 03/18/25 trazodone 50 mg tablet 50 mg PO ONCE PM 03/18/25 03/18/25 Previous Rx's ?Medication ?Instructions ?Recorded epinephrine 0.3 mg/0.3 mL See Rx Instructions .Route 10/31/21 injection, auto-injector .COMPLEX #2 ea budesonide-formoterol HFA 160 2 puff inhalation BID #10.2 grams 12/15/21 mcg-4.5 mcg/actuation aerosol inhaler (Symbicort) buspirone 15 mg tablet 15 mg PO BID #180 tabs 12/15/21 gabapentin 300 mg capsule 300 mg PO BID #60 caps 12/15/21 levalbuterol tartrate 45 2 puff inhalation Q4-6H PRN 12/15/21 mcg/actuation aerosol inhaler Wheezing #15 grams (Xopenex HFA) Allergies Allergy/AdvReac Type Severity Reaction Status Date / Time albuterol Allergy Severe Anaphylaxis Verified 10/04/25 18:08 bee venom protein (honey bee) Allergy Anaphylaxis Verified 10/04/25 18:08 tramadol AdvReac addiction Verified 10/04/25 18:08 Review of Systems <Joey Shell MD - Last Filed: 10/07/25 07:55> Review of Systems ROS Unobtainable: All systems reviewed & are unremarkable except as noted in HPI and below Patient History <Joey Shell MD - Last Filed: 10/07/25 07:55> Medical History (Updated 10/04/25 @ 19:07 by Joey Shell MD) Heavy vaginal bleeding due to contraceptive injection use Nasolacrimal duct obstruction Immunity status testing Hormonal disorder Varicella Surgical History History of ankle surgery Social History (Updated 06/13/20 @ 21:46 by BLANCA Zepeda) household members: family Smoking Status: Never smoker alcohol intake: current substance use type: does not use Smoking Status: Never smoker alcohol intake frequency: holidays/special occasions only Exam <Joey Shell MD - Last Filed: 10/07/25 07:55> Initial Vital Signs Initial Vital Signs: Vital Signs Temperature 98 F 10/04/25 18:08 Pulse Rate 87 10/04/25 18:08 Respiratory Rate 17 10/04/25 18:08 Blood Pressure 128/72 10/04/25 18:08 Pulse Oximetry 98 10/04/25 18:08 Oxygen Delivery Method Room Air 10/04/25 18:08 Const General: cooperative, healthy appearing, comfortable and well developed Nutritional Appearance: average body habitus [facility] Head: normal to inspection Ears: external ears normal Nose: external nose normal and nares normal Face and sinus: sinuses nontender, face symmetric, ecchymosis not on the right, not on the left and not bilaterally, erythema not on the right, not on the left and not bilaterally and edema not on the right, not on the left and not bilaterally Mouth: lip normal Eyes Eyelids: eyelids normal Sclera: sclerae normal Pupils: PERRL Neck Neck: normal visual inspection Resp Effort & Inspection: normal respiratory effort and able to speak in complete sentences GI Inspection: normal to inspection Neuro General: patient alert, patient awake, patient oriented x3, gait normal, moves all extremities, normal light touch, pain and propioception, no focal motor deficits and CN's II-XI intact bilaterally Cognition: normal cognition Speech: speech normal Gait: normal gait Motor: muscle tone normal throughout Sensory Exam: no sensory deficits noted Other: Patient with extreme photophobia. Will not open eyes in triage. With dark glasses able to open her eyes slightly. Extraocular movement intact Psych Appearance: grossly normal Mental Status: mental status grossly normal Speech and Movement: speech and movement normal Mood: congruent mood Attitude: cooperative Thought Process: normal Thought Content: normal Judgment: judgment good <Agnes Parrish DO - Last Filed: 10/05/25 23:32> Initial Vital Signs Initial Vital Signs: Vital Signs Temperature 98 F 10/04/25 18:08 Pulse Rate 87 10/04/25 18:08 Respiratory Rate 17 10/04/25 18:08 Blood Pressure 128/72 10/04/25 18:08 Pulse Oximetry 98 10/04/25 18:08 Oxygen Delivery Method Room Air 10/04/25 18:08 Scores <Joey Shell MD - Last Filed: 10/07/25 07:55> NIH Stroke Scale Level of Conciousness: Alert, keenly responsive Ask month/age: Answers both questions correctly. Open/close eyes, close hand: Performs both tasks correctly Best gaze horizontal: Normal Visual faustin: No visual loss Facial palsy: Normal symetrical movement Left arm drift: No drift for full 10 sec Right arm drift: No drift for full 10 sec Left leg drift: No drift for full 5 sec Right leg drift: No drift for full 5 sec Limb ataxia: Absent Sensory on face/arms/legs: Normal, no sensory loss Best language: No aphasia, normal Dysarthria: Normal Extinction or inattention: No abnormality Total NIH Stroke scale score: 0 Citation:: Patient with negative test of skew and normal gait <Agnes Parrish DO - Last Filed: 10/05/25 23:32> NIH Stroke Scale Total NIH Stroke scale score: 0 Course <Joey Shell MD - Last Filed: 10/07/25 07:55> Course Course Narrative: Patient assessed in triage, extreme photophobia noted. Given symptoms called outside neurologist Dr. Miller. Dr. Barahona he agrees with diagnosis complex migraine. States it is possibly a confusional migraine and agrees with of my recommendation migraine treatment in the ER and follow-up with neurology. Orders Ordered: Discontinued Medications Sodium Chloride (Normal Saline 0.9%) 1,000 mls @ 1,000 mls/hr IV BOLUS ONE Stop: 10/04/25 19:24 Last Infusion: 10/04/25 20:18 Dose: Infused Documented By: Admin: 10/04/25 18:52 Dose: 1,000 mls/hr Documented By: SAHARA Magnesium Sulfate (Magnesium Sulfate) 2 gm in 50 mls @ 600 mls/hr IV NOW ONE Stop: 10/04/25 18:30 Last Infusion: 10/04/25 19:19 Dose: Infused Documented By: SAHARA Co-signed By: FRANDY Admin: 10/04/25 18:52 Dose: 600 mls/hr Documented By: SAHARA Co-signed By: KIANNA Ketorolac Tromethamine (Ketorolac 30 Mg/Ml Vial) 15 mg IV NOW ONE Stop: 10/04/25 20:15 Last Admin: 10/04/25 20:23 Dose: 15 mg Documented By: SAHARA Metoclopramide HCl (Metoclopramide 10 Mg/2 Ml Inj) 10 mg IV NOW ONE Stop: 10/04/25 18:26 Last Admin: 10/04/25 18:52 Dose: 10 mg Documented By: SAHARA Vital Signs Vital signs: Vital Signs - 8 hr 10/04/25 18:08 Temperature 98 F Pulse Rate 87 Respiratory Rate 17 Blood Pressure 128/72 Pulse Oximetry 98 Oxygen Delivery Method Room Air <Agnes Parrish, - Last Filed: 10/05/25 23:32> Orders Ordered: Discontinued Medications Sodium Chloride (Normal Saline 0.9%) 1,000 mls @ 1,000 mls/hr IV BOLUS ONE Stop: 10/04/25 19:24 Last Infusion: 10/04/25 20:18 Dose: Infused Documented By: Admin: 10/04/25 18:52 Dose: 1,000 mls/hr Documented By: SAHARA Magnesium Sulfate (Magnesium Sulfate) 2 gm in 50 mls @ 600 mls/hr IV NOW ONE Stop: 10/04/25 18:30 Last Infusion: 10/04/25 19:19 Dose: Infused Documented By: SAHARA Co-signed By: FRANDY Admin: 10/04/25 18:52 Dose: 600 mls/hr Documented By: SAHARA Co-signed By: KIANNA Ketorolac Tromethamine (Ketorolac 30 Mg/Ml Vial) 15 mg IV NOW ONE Stop: 10/04/25 20:15 Last Admin: 10/04/25 20:23 Dose: 15 mg Documented By: SAHARA Metoclopramide HCl (Metoclopramide 10 Mg/2 Ml Inj) 10 mg IV NOW ONE Stop: 10/04/25 18:26 Last Admin: 10/04/25 18:52 Dose: 10 mg Documented By: SAHARA Vital Signs Vital signs: Vital Signs - 8 hr 10/04/25 18:08 Temperature 98 F Pulse Rate 87 Respiratory Rate 17 Blood Pressure 128/72 Pulse Oximetry 98 Oxygen Delivery Method Room Air MDM - Headache <Joey Shell MD - Last Filed: 10/07/25 07:55> [facility] Narrative Medical decision making narrative: Pt presents w DOZIER, normal neuro exam, no red flags, well appearing. No bloodwork indicated as I considered but do not suspect severe anemia, electrolyte abnl (including hypokalemia, hyperkalemia, hyponatremia, hypernatremia, hypoglycemia, hyperglycemia, etc). CT brain considered to evaluate for evidence of mass. However deferred at this time due to reassuring history and physical No LP performed as I considered but do not suspect intracranial hemorrhage/meningitis. PO pain meds. At 1900 pt signed out to Dr. Parrish pending re-eval <Agnes Parrish DO - Last Filed: 10/05/25 23:32> [facility] Narrative Medical decision making narrative: Pt presents w DOZIER, normal neuro exam, no red flags, well appearing. No bloodwork indicated as I considered but do not suspect severe anemia, electrolyte abnl (including hypokalemia, hyperkalemia, hyponatremia, hypernatremia, hypoglycemia, hyperglycemia, etc). CT brain considered to evaluate for evidence of mass. However deferred at this time due to reassuring history and physical No LP performed as I considered but do not suspect intracranial hemorrhage/meningitis. PO pain meds. At 1900 pt signed out to Dr. Parrish pending re-eval 10/04/25 Dr. Parrish: Patient signed out to my self. Patient is seen and evaluated she feels that she is improving overall discussed we will add a little bit additional medication. We discussed Toradol which she states she has had in the past and has been helpful. On recheck patient feels much improved. Feels comfortable with discharge. Discharge Plan Departure Patient Disposition: Home Clinical Impression: Acute confusional migraine Instructions: DI for Migraine, DI for Headache Activity Restrictions/Additional Instructions: Follow up for recheck. If you have new or worsening symptoms please return for re-evaluation. Prescriptions: No Action fluoxetine 10 mg capsule 10 mg PO DAILY lithium carbonate 300 mg tablet extended release 300 mg PO BID trazodone 50 mg tablet 50 mg PO ONCE PM fluconazole 100 mg tablet PO bupropion HCl 300 mg tablet extended release 24 hr 300 mg PO DAILY propranolol 10 mg tablet 10 mg PO DAILY epinephrine 0.3 mg/0.3 mL auto-injector See Rx Instructions .ROUTE .COMPLEX Qty: 2 0RF Dose Instruction: USE DIRECTED NEEDED FOR ALLERGIC REACTION Rx Instructions: USE DIRECTED NEEDED FOR ALLERGIC REACTION buspirone 15 mg tablet 15 mg PO BID Qty: 180 1RF gabapentin 300 mg capsule 300 mg PO BID Qty: 60 3RF levalbuterol tartrate [Xopenex HFA] 45 mcg/actuation HFA aerosol inhaler 2 puff INHALATION Q4-6H PRN (Reason: Wheezing) Qty: 15 2RF budesonide-formoterol [Symbicort] 160-4.5 mcg/actuation HFA aerosol inhaler 2 puff INHALATION BID Qty: 10.2 3RF Referrals: Royer Fairbanks MD [Non-Staff, Neurology] Carlos Garcia MD [Primary Care Provider, Family Practice] Stand Alone Forms: Patient Portal/API
[2025-10-04] MEDS: SODIUM CHLORIDE 0.9% 1,000 ML 1000 ML IV (18:52)
[2025-10-04] MEDS: METOCLOPRAMIDE 10 MG/2 ML INJ IV (18:52)
[2025-10-04] MEDS: MAGNESIUM SULFATE 2 GM/50 ML PIGGYBACK IV (18:52)
[2025-10-04] MEDS: KETOROLAC 30 MG/ML VIAL 15 MG IV (20:23)
[2025-10-04 21:54] VITALS: BP 103/61; PULSE 63; RESP 16; O2SAT 98
== END 2025-10-04 21:54 | disposition home or self-care (01) ==
PROVIDERS: Emergency Provider Emergency Medicine; Family Provider Family Medicine; PCP Family Medicine
DX: G43.809 Other migraine, not intractable, without status migrainosus (principal); R41.0 Disorientation, unspecified; R55 Syncope and collapse
CPT/HCPCS: 36415; 96365; 96375; 99284; J1885; J2765; J3475; J7030

== ENCOUNTER 2025-10-20 11:39 | Emergency (ER) | payer OTHER, SELFPAY ==
[2025-10-20 11:50] VITALS: BP 155/81; PULSE 139; RESP 16; TEMP 37.2; O2SAT 98; BMI 24.1
--- NOTE | 2025-10-20 11:53 | DI.CT.S_ITS ---
PROCEDURE: CT HEAD/BRAIN WO CON INDICATIONS: acute tremors of arms and legs TECHNIQUE: Noncontrast 4.5 mm thick angled axial sections acquired from the foramen magnum to the vertex, with coronal and sagittal reformats. For radiation dose reduction, the following was used: automated exposure control, adjustment of mA and/or kV according to patient size. COMPARISON: None. FINDINGS: Image quality: Diagnostic. CSF spaces: Basal cisterns are patent. No extra-axial fluid collections. Ventricles are normal in size and shape. Brain: No midline shift. No intracranial mass effect or hemorrhage. Francis- white matter interface is normal. Skull and face: Calvarium and visualized facial bones are intact, without suspicious lesions. Sinuses: Visualized sinuses and mastoids are clear. IMPRESSION: No acute intracranial pathology. Dictated by: Rubén Esparza M.D. on 10/20/2025 at 12:13 Approved by: Rubén Esparza M.D. on 10/20/2025 at 12:14
[2025-10-20] MEDS: SODIUM CHLORIDE 0.9% 1,000 ML 1000 ML IV (12:29)
[2025-10-20 12:33] VITALS: PULSE 101; RESP 12; O2SAT 97
[2025-10-20 12:38] LABS: Add Manual Diff / Slide Review NO; Hematocrit 38.0 % (36-46); Hemoglobin 12.7 g/dL (12.0-16.0); Lymphocytes Absolute Auto 1700 /uL (1100-4500); Mean Corpuscular HGB Conc 33.5 % (30-36); Mean Corpuscular Hemoglobin 30.6 PG (26-34); Mean Corpuscular Volume 91.3 fL (80-100); Platelet Count 231 X10^3/uL (150-400)
[2025-10-20 12:51] LABS: Alanine Aminotransferase 19 IU/L (<35); Albumin 4.8 g/dL (3.5-5.0); Albumin Globulin Ratio 1.7 (1.0-2.8); Alkaline Phosphatase 52 U/L (38-126); Blood Urea Nitrogen 3 mg/dL (7-17); Calcium 9.4 mg/dL (8.4-10.2); Carbon Dioxide 22 mmol/L (22-32); Chloride 108 mmol/L (98-107); Estimated Glomerular Filt Rate > 60 mL/min (>60); Globulin 2.8 g/dL (1.7-4.1); Glucose 91 mg/dL (70-99); HEMOLYSIS < 15 (0-50); Potassium 4.2 mmol/L (3.4-5.1); Sodium 140 mmol/L (137-145); Total Protein 7.6 g/dL (6.3-8.2)
--- NOTE | 2025-10-20 14:38 | ED.SEIZURE ---
HPI - Seizure General Chief Complaint: Seizure Stated Complaint: seziure Time Seen by Provider: 10/20/25 11:52 Mode of arrival: Wheelchair History of Present Illness HPI Narrative: Ms. 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 Patient states that she has been dealing with intermittent upper extremity tremors, she is currently being followed by her primary care doctor and has an appointment with Neurology in March. Reports that she has been out of work for 2 weeks due to severe migraine and over the weekend this migraine went away however her upper extremity tremors have been getting worse. While at work today, she noticed her arm tremors or getting more severe and then she also started developing leg tremors. At my time of evaluation in triage room the patient is having active shaking of her arms and legs both at rest and with movement. She is able to provide her own clear history. She denies any known trigger. No chest pain, shortness of breath fevers, chills, vomiting, diarrhea. Related Data Home Medications ?Medication ?Instructions ?Recorded ?Confirmed bupropion HCl 300 mg 24 hr tablet, 300 mg PO DAILY 03/18/25 03/18/25 extended release fluconazole 100 mg tablet mg PO 03/18/25 03/18/25 fluoxetine 10 mg capsule 10 mg PO DAILY 03/18/25 03/18/25 lithium carbonate 300 mg 300 mg PO BID 03/18/25 03/18/25 tablet,extended release propranolol 10 mg tablet 10 mg PO DAILY 03/18/25 03/18/25 trazodone 50 mg tablet 50 mg PO ONCE PM 03/18/25 03/18/25 Previous Rx's ?Medication ?Instructions ?Recorded epinephrine 0.3 mg/0.3 mL See Rx Instructions .Route 10/31/21 injection, auto-injector .COMPLEX #2 ea budesonide-formoterol HFA 160 2 puff inhalation BID #10.2 grams 12/15/21 mcg-4.5 mcg/actuation aerosol inhaler (Symbicort) buspirone 15 mg tablet 15 mg PO BID #180 tabs 12/15/21 gabapentin 300 mg capsule 300 mg PO BID #60 caps 12/15/21 levalbuterol tartrate 45 2 puff inhalation Q4-6H PRN 12/15/21 mcg/actuation aerosol inhaler Wheezing #15 grams (Xopenex HFA) Allergies Allergy/AdvReac Type Severity Reaction Status Date / Time albuterol Allergy Severe Anaphylaxis Verified 10/20/25 11:50 bee venom protein (honey bee) Allergy Anaphylaxis Verified 10/20/25 11:50 tramadol AdvReac addiction Verified 10/20/25 11:50 Review of Systems Review of Systems ROS Unobtainable: All systems reviewed & are unremarkable except as noted in HPI and below Patient History Medical History Heavy vaginal bleeding due to contraceptive injection use Nasolacrimal duct obstruction Immunity status testing Hormonal disorder Varicella Surgical History History of ankle surgery Social History household members: family alcohol intake: current substance use type: does not use alcohol intake frequency: holidays/special occasions only Exam Narrative Exam Narrative: GENERAL: 30 year old patient appears stated age. Well-developed patient. She is currently sitting in a wheelchair with active tremor/shaking of her arms and legs, able to provide her own clear history. HEAD: Atraumatic. Normocephalic. EYES: Pupils are equal and round. She refuses light testing of pupillary reaction. Extraocular motions intact. No scleral icterus. No injection or drainage. ENT: Nose without bleeding, purulent drainage. Throat without erythema, tonsillar hypertrophy or exudate. Airway patent. NECK: Trachea midline. Cervical ROM intact. CARDIOVASCULAR: Regular rate and rhythm. RESPIRATORY: ?Nonlabored respirations. ?Speaking in clear, full sentences. ?Clear to auscultation. Breath sounds equal bilaterally. No wheezes, rales, or rhonchi. ? GASTROINTESTINAL: Abdomen soft, non-tender, nondistended. BS present. EXTREMITIES: 2+ radial pulses BL. 5/5 bilateral upper and lower extremity flexion-extension strength of knees and elbows. NEURO: AOx3. ?Clear speech. ?Active flexion-extension/shaking of arms and legs during exam. Sensation intact to light touch in upper and lower extremities. No facial asymmetry. SKIN: No rash or erythema of visible areas. Initial Vital Signs Initial Vital Signs: Vital Signs Temperature 98.9 F 10/20/25 11:50 Pulse Rate 139 H 10/20/25 11:50 Respiratory Rate 16 10/20/25 11:50 Blood Pressure 155/81 H 10/20/25 11:50 Pulse Oximetry 98 10/20/25 11:50 Oxygen Delivery Method Room Air 10/20/25 11:50 Course Orders Ordered: ED Orders 10/20/25 11:53 CT head/brain wo con Stat EKG-12 Lead Stat 10/20/25 12:29 CBC Auto Diff [Complete Blood Count AUTO DIFF] Stat CMP [Comprehensive Metabolic Panel] Stat Discontinued Medications Sodium Chloride (Normal Saline 0.9%) 1,000 mls @ 1,000 mls/hr IV BOLUS ONE Stop: 10/20/25 12:52 Last Infusion: 10/20/25 14:05 Dose: Infused Documented By: Admin: 10/20/25 12:29 Dose: 1,000 mls/hr Documented By: KIANNA Lorazepam (Lorazepam 2 Mg/Ml Inj) 0.5 mg IV NOW ONE Stop: 10/20/25 11:54 Last Admin: 10/20/25 12:28 Dose: 0.5 mg Documented By: KIANNA Vital Signs Vital signs: Vital Signs - 8 hr 10/20/25 11:50 10/20/25 12:33 10/20/25 15:43 Temperature 98.9 F Pulse Rate 139 H 101 H 78 Respiratory Rate 16 12 17 Blood Pressure 155/81 H 107/59 L Pulse Oximetry 98 97 97 Oxygen Delivery Method Room Air Room Air Room Air MDM - Seizure Medical Records Attestation: I reviewed the patient's medical records. Lab Data 10/20/25 12:29 10/20/25 12:29 Labs: Lab Results 10/20/25 Range/Units 12:29 WBC 7.2 (4.5-11.0) X10^3/uL RBC 4.16 (4.0-5.2) X10^6/uL Hgb 12.7 (12.0-16.0) g/dL Hct 38.0 (36-46) % MCV 91.3 (80-100) fL MCH 30.6 (26-34) PG MCHC 33.5 (30-36) % RDW 12.9 (11.6-14.8) % Plt Count 231 (150-400) X10^3/uL Neut % (Auto) 63.0 (50-75) % Lymph % (Auto) 23.6 L (25-40) % [place] % (Auto) 10.4 (3-14) % Eos % (Auto) 2.5 (2-4) % Baso % (Auto) 0.5 (0-2) % Neut # (Auto) 4500 (3790-0171) /uL Lymph # (Auto) 1700 (6846-2869) /uL [place] # (Auto) 800 (0-900) /uL Eos # (Auto) 200 (0-450) /uL Baso # (Auto) 0 (0-100) /uL Sodium 140 (137-145) mmol/L Potassium 4.2 (3.4-5.1) mmol/L Chloride 108 H (98-107) mmol/L Carbon Dioxide 22 (22-32) mmol/L BUN 3 L (7-17) mg/dL Creatinine 0.71 (0.52-1.04) mg/dL Estimated GFR > 60 (>60) mL/min BUN/Creatinine Ratio 4.2 L (6-22) Glucose 91 (70-99) mg/dL Calcium 9.4 (8.4-10.2) mg/dL Total Bilirubin 0.5 (0.2-1.3) mg/dL AST 25 (14-36) IU/L ALT 19 (<35) IU/L Alkaline Phosphatase 52 (38-126) U/L Total Protein 7.6 (6.3-8.2) g/dL Albumin 4.8 (3.5-5.0) g/dL Globulin 2.8 (1.7-4.1) g/dL Albumin/Globulin Ratio 1.7 (1.0-2.8) Imaging Data CT scan - head: Radiologist's Impression: PROCEDURE: CT HEAD/BRAIN WO CON INDICATIONS: acute tremors of arms and legs TECHNIQUE: Noncontrast 4.5 mm thick angled axial sections acquired from the foramen magnum to the vertex, with coronal and sagittal reformats. For radiation dose reduction, the following was used: automated exposure control, adjustment of mA and/or kV according to patient size. COMPARISON: None. FINDINGS: Image quality: Diagnostic. CSF spaces: Basal cisterns are patent. No extra-axial fluid collections. Ventricles are normal in size and shape. Brain: No midline shift. No intracranial mass effect or hemorrhage. Francis-white matter interface is normal. Skull and face: Calvarium and visualized facial bones are intact, without suspicious lesions. Sinuses: Visualized sinuses and mastoids are clear. IMPRESSION: No acute intracranial pathology. Dictated by: Rubén Esparza M.D. on 10/20/2025 at 12:13 Approved by: Rubén Esparza M.D. on 10/20/2025 at 12:14 ECG Data Interpretation: ECG reveals normal sinus rhythm. Nonspecific T-wave abnormality. QTC 454. 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 Differential diagnosis includes but isn't limited to seizure-like activity, electrolyte derangement, intracerebral mass, psychogenic seizure, complex migraine, etc. On exam patient is nontoxic appearing, no acute distress, she is having active upper and lower extremity tremor/shaking. She does deal with the upper extremity tremor at baseline however this is much worse than normal. We will treat with Ativan, obtain CT head, CBC CMP EKG. Patient's symptoms resolved after 0.5 mg Ativan and [address] head reveals no acute intracranial pathology. Labs reveal normal WBC count 7.2, hemoglobin 12.7 hematocrit 38.0. Platelets two hundred thirty-one. Sodium 140, potassium 4.2, BUN 3 creatinine 0.71. Case discussed with attending ED physician, Dr. Shell. Discussed with the patient workup today, printed and discussed reassuring head CT. Her symptoms have resolved at this time. She does have an appointment with PCP tomorrow and Neurology in March, did encourage moving up the neurology appointment if possible. Patient does have home prescription for Xanax, discussed using this medication if she develops increase in her tremors, strict ER return precautions. Encouraged patient not to drive at this time. She verbalized understanding of all information agreeable with the plan. at the bedside. She is stable for discharge home. Discharge Plan Departure Patient Disposition: Home Clinical Impression: Tremor of extremity, Seizure-like activity Instructions: DI for Seizure (Not Epilepsy/Seizure Disorder) Activity Restrictions/Additional Instructions: Dear Ms. Doran, Thank you for coming to the emergency department. I am very sorry that today you experience tremors of your arms and legs/seizure-like activity. We will obtain CT imaging of your head/brain which revealed no masses. You were treated with IV fluids and IV Ativan. At this time I would like you to rest, hydrate, follow up with the primary care doctor, and follow up with Neurology. Please use your home prescription for Xanax if needed for increased tremors. Please do not drive a car while you are being evaluated for possible seizures. Please follow up with your primary care doctor within the next 2-3 days for ER follow-up. (If you do not have a PCP you can call [phone]. ?to schedule an appointment with an [facility] Primary Care Provider) IF YOU DEVELOP ANY NEW OR WORSENING SYMPTOMS, RETURN TO THE ER! Please read the attached instructions, they highlight more specific treatments and interventions for you at home. Thank you for letting me participate in your care, Chela Hyde PA-C Prescriptions: No Action fluoxetine 10 mg capsule 10 mg PO DAILY lithium carbonate 300 mg tablet extended release 300 mg PO BID trazodone 50 mg tablet 50 mg PO ONCE PM fluconazole 100 mg tablet PO bupropion HCl 300 mg tablet extended release 24 hr 300 mg PO DAILY propranolol 10 mg tablet 10 mg PO DAILY epinephrine 0.3 mg/0.3 mL auto-injector See Rx Instructions .ROUTE .COMPLEX Qty: 2 0RF Dose Instruction: USE DIRECTED NEEDED FOR ALLERGIC REACTION Rx Instructions: USE DIRECTED NEEDED FOR ALLERGIC REACTION buspirone 15 mg tablet 15 mg PO BID Qty: 180 1RF gabapentin 300 mg capsule 300 mg PO BID Qty: 60 3RF levalbuterol tartrate [Xopenex HFA] 45 mcg/actuation HFA aerosol inhaler 2 puff INHALATION Q4-6H PRN (Reason: Wheezing) Qty: 15 2RF budesonide-formoterol [Symbicort] 160-4.5 mcg/actuation HFA aerosol inhaler 2 puff INHALATION BID Qty: 10.2 3RF Referrals: Carlos Garcia MD [Primary Care Provider, Family Practice] Stand Alone Forms: Patient Portal/API, Work Release Note
--- NOTE | 2025-10-20 14:59 | EKG_ITS ---
[address] [address] Test Date: 2025-10-20 Pat Name: Divina Doran Department: [facility] Room: Gender: Female Field Support Rep: 8 : 1995 Requested By: Order Number: [id number] Reading MD: James Mcconnell Measurements Intervals [place] Rate: 76 P: 60 RI: 168 QRS: 72 QRSD: 88 T: 66 QT: 404 QTc: 454 Interpretive Statements Normal sinus rhythm Nonspecific T wave abnormality Electronically Signed On 10-23-2025 12:55:50 PST by James Mcconnell
[2025-10-20 15:43] VITALS: BP 107/59; PULSE 78; RESP 17; O2SAT 97
== END 2025-10-20 16:03 | disposition home or self-care (01) ==
PROVIDERS: Emergency Provider Physician Assistant; Family Provider Family Medicine; PCP Family Medicine
DX: R25.1 Tremor, unspecified (principal); R56.9 Unspecified convulsions; Z86.69 Personal history of other diseases of the nervous system and sense organs
CPT/HCPCS: 36415; 70450; 80053; 85025; 93005; 96374; 99284; J2060; J7030